=== PATIENT | male | born 1970 | race Caucasian/White ===

== ENCOUNTER → 2019-09-10 07:54 | Outpatient (BNVA) | payer MEDICAID, SELFPAY | PROVIDERS: Family Provider Psychiatry & Neurology Neurology; PCP Family Medicine; Visit Provider Specialist | DX: R56.9 Unspecified convulsions (principal) | CPT/HCPCS: 95816 ==

== ENCOUNTER → 2019-09-12 14:18 | Outpatient (BNVA) | payer MEDICAID, SELFPAY | PROVIDERS: Family Provider Psychiatry & Neurology Neurology; PCP Family Medicine; Visit Provider Nurse Practitioner | DX: F33.1 Major depressive disorder, recurrent, moderate (principal); F15.20 Other stimulant dependence, uncomplicated; F12.20 Cannabis dependence, uncomplicated | CPT/HCPCS: 99213 ==

== ENCOUNTER 2019-09-29 21:21 | Emergency (ER) | payer MEDICAID, SELFPAY | END 2019-09-30 01:12 | disposition left against medical advice (07) | LOC: ER 10-09 14:35 | PROVIDERS: Emergency Provider Emergency Medicine; Family Provider Psychiatry & Neurology Neurology; PCP Family Medicine | DX: R07.9 Chest pain, unspecified (principal); F15.20 Other stimulant dependence, uncomplicated; I45.10 Unspecified right bundle-branch block; F17.210 Nicotine dependence, cigarettes, uncomplicated; Z59.0 Homelessness; B18.2 Chronic viral hepatitis C; Z86.73 Personal history of transient ischemic attack (TIA), and cerebral infarction without residual deficits ==

== ENCOUNTER 2019-09-29 21:21 | Emergency (ER) | payer MEDICAID, SELFPAY ==
[2019-09-29 22:12] VITALS: BP 142/116; PULSE 90; RESP 18; TEMP 36.9; O2SAT 97; BMI 28.9
--- NOTE | 2019-09-29 22:27 | XR_ITS ---
WS: [id number] XR chest 1V portable [id number] REASON FOR EXAM: infection rule out blurred vision. FINDINGS: The cardiac silhouette was unremarkable. The lung schaffer are well aerated. No pulmonary edema, pleural effusion, pneumonia, or mass effect. The hilum and apices are normal. No osseous abnormalities. XR/XR chest 1V portable [id number] IMPRESSION: No active cardiopulmonary changes.
--- NOTE | 2019-09-29 22:27 | ECG_ITS ---
Measurements Intervals [place] Rate: 86 P: 6 MO: 136 QRS: 3 QRSD: 108 T: 10 QT: 349 QTc: 419 SINUS RHYTHM LOW QRS VOLTAGE IN PRECORDIAL LEADS [QRS DEFLECTION < 1.0 mV IN CHEST LEADS] INCOMPLETE RIGHT BUNDLE BRANCH BLOCK [90+ ms QRS DURATION, TERMINAL R IN V1/V2, 40+ ms S IN I/aVL/V4/V5/V6] MINIMAL VOLTAGE CRITERIA FOR LVH, CONSIDER NORMAL VARIANT [MEETS CRITERIA IN ONE OF: R(aVL), S(V1), R(V5), R(V5/V6)+S(V1)] Compared to ECG 07/29/2019 16:26:24 Low QRS voltage now present Myocardial infarct finding no longer present Electronically Signed On 09-30-2019 9:13:32 MID TEACHER by Cj Haider M.D. [id number]
[2019-09-29 22:45] LABS: Basophils # 0.1 10^3/uL (0.0-0.1); Eosinophils # 0.4 10^3/uL (0.0-0.8); Eosinophils % 5.4 %; Hematocrit 41.3 % (42.0-52.0); Hemoglobin 13.6 g/dL (11.7-16.6); Lymphocytes # 3.7 10^3/uL (0.8-4.8); Lymphocytes % 46.9 %; Mean Corpuscular HGB Conc 32.9 g/dL (30.0-36.0); Mean Corpuscular Hemoglobin 30.4 pg (28.0-34.0); Mean Corpuscular Volume 92.2 fL (80-94); Mean Platelet Volume 9.6 fL (7.4-10.4); Monocytes # 0.7 10^3/uL (0.2-0.9); Monocytes % 8.8 %; Neutrophils % 37.8 %; Nucleated Red Blood Cells % 0 %; Platelet Count 230 10^3/cmm (130-400); Red Blood Count 4.48 10^6/uL (4.1-5.3)
[2019-09-29 23:08] LABS: Troponin(5th) Baseline 6 ng/mL (0-15)
[2019-09-29 23:16] LABS: Alanine Aminotransferase 13 U/L (0-41); Albumin Level 4.4 g/dL (3.5-5.2); Alkaline Phosphatase 100 IU/L (40-130); Anion Gap 14.3 (5-19); Aspartate Amino Transferase 20 U/L (0-40); Blood Urea Nitrogen 13 mg/dL (6-20); Calcium 9.3 mg/dL (8.5-10.5); Carbon Dioxide 29 mmol/L (22-29); Chloride 104 mmol/L (98-107); Globulin 2.9 g/dL (1.3-4.6); Glomerular Filtration Rate 89.7 mL/min (90-130); Glucose 100 mg/dL (65-115); NT Pro B Type Natriuretic Pept 6 pg/mL (0-125); Potassium 4.3 mmol/L (3.5-5.1); Sodium 143 mmol/L (136-145); Total Bilirubin 0.2 mg/dL (0.15-1.2); Total Protein 7.3 g/dL (6.6-8.7)
[2019-09-29 23:19] VITALS: BP 130/95; PULSE 80; RESP 18; O2SAT 97
--- NOTE | 2019-09-29 23:29 | ED_ITS ---
Entered by Alyse Calderon, acting as scribe for Ester Tejeda Sep 29, 2019 21:21 HPI - Chest Pain General: Chief Complaint: Chest Pain Stated Complaint: chest pain Time Seen by Provider: 09/29/19 23:21 Source: patient Mode of arrival: ambulatory History of Present Illness: HPI narrative: 49 y/o male presents to the ED with chest pain. Pt states he put his finger in a bag of meth and then proceeded to taste it. He immediately had blurred vision, dizziness and chest pain. Pt has facial twitches and erratic movements consistent with regular stimulant use. MD complaint: chest pain Onset (ago): hour(s) Timing of current episode: other (somewhat improved) Onset: associated with drug use (meth) Pain radiation: none Quality: sharp Relieving factors: nothing Associated symptoms: Deny abdominal pain, diaphoresis, dyspnea, fever(s), nausea or vomiting Treatment prior to arrival: none Review of Systems General: Reports: other (negative unless marked) Const: Denies: fever, chills, body aches, fatigue, malaise or diaphoresis ENMT: Denies: throat pain, painful swallowing, hoarseness, ear pain, ear discharge, Change in hearing or nasal discharge Resp: Denies: shortness of breath, productive cough, non-productive cough, wheezing, coughing up blood or chest congestion GI: Denies: abdominal pain, nausea, vomiting, vomiting blood, coffee grounds in vomit, diarrhea, constipation, cramping, blood in stool or black tarry stool : Denies: flank pain, difficulty urinating, painful urination, urinary frequency, urinary urgency, decreased urine ouput, urinary incontinence or blood in urine Musc: Denies: neck pain, back pain, extremity pain, extremity swelling, joint pain, joint swelling, joint warmth or joint stiffness Skin/Breast: Denies: rash, skin tenderness or yellow skin Endo: Denies: excessive thirst, tired all the time, cold intolerance, excessive sweating, flushing or hot flashes Renard/Lymph: Denies: easy bruising, easy bleeding, petechiae or enlarged lymph nodes [facility] ED PFSH: Medical History Arteriosclerotic cerebrovascular disease Cannabis dependence, uncomplicated Chronic hepatitis C with hepatic coma Chronic low back pain Major depressive disorder, recurrent, moderate MARIA DEL CARMEN (obstructive sleep apnea) Other stimulant dependence, uncomplicated Patent foramen ovale Seizures Surgical History H/O knee surgery History of hip surgery Family History Other Cancer Hypertension Social History Smoking and tobacco status: current every day smoker cigarettes Packs smoked per day: 2.5 Alcohol intake: current Alcohol intake frequency: holidays/special occasions only Housing: Homeless Physical Exam Const: COMMON NORMALS: oriented x3 GENERAL APPEARANCE: cooperative ORIENTATION/CONSCIOUSNESS: Yes awake HENMT: COMMON NORMALS: normocephalic, head/scalp atraumatic, hearing grossly normal bilaterally, external ears normal, EAC's normal, external nose normal and moist oral mucous membranes HEAD & SCALP: normal to inspection, normocephalic and atraumatic FACE & SINUS: normal facial exam and face symmetric NOSE: external nose normal and nares normal EXTERNAL EAR: Yes external ears normal EXTERNAL AUDITORY CANAL: EAC's normal MOUTH: oral and palatal mucosa normal and tongue normal Eye: COMMON NORMALS: PERRL, EOMs intact bilaterally, conjunctivae normal and no scleral icterus GENERAL EYE: normal appearance of both eyes and normal light reflex CONJUNCTIVA: Yes conjunctivae normal SCLERA: sclerae normal CORNEA: Yes corneas normal PUPIL: Yes PERRL DIRECT OPHTHALMOSCOPY: Yes normal light reflex Neck/C-Spine: COMMON NORMALS: full ROM, no lymphadenopathy, supple, no meningeal signs and no JVD GENERAL: Yes normal visual inspection and Yes trachea midline CERVICAL SPINE: Yes cervical ROM normal Chest: COMMONS NORMALS: inspection of chest normal and palpation of chest normal Resp: COMMON NORMALS: normal respiratory effort, no retractions, no use of accessory muscles and clear to auscultation bilaterally EFFORT & INSPECTION: Yes able to speak in complete sentences AUSCULTATION: clear to auscultation bilaterally Cardio: COMMON NORMALS: no JVD, regular rate, regular rhythm, S1 normal heart sound, S2 normal heart sound, no gallops, no clicks, no murmurs and no rub JUGULAR VENOUS DISTENTION: no JVD RATE: regular rate RHYTHM: regular rhythm HEART SOUNDS: S1 normal and S2 normal GI: COMMON NORMALS: soft to palpation, non-tender, no hepatosplenomegaly and no masses INSPECTION: Yes normal to inspection PALPATION: Yes soft and Yes no hepatosplenomegaly : COMMON NORMALS: Yes no CVA tenderness BLADDER/KIDNEY EXAM: Yes no CVA tenderness Back/Pelvis: COMMON NORMALS: no CVA tenderness, thoracic and lumbar spine normal to inspection, no thoracic nor lumbar tenderness and thoraco-lumbar ROM normal Extremity: COMMON NORMALS: normal to inspection, full ROM, normal capillary refill, no joint enlargement, no clubbing, cyanosis or edema and no calf tenderness Neuro: COMMON NORMALS: oriented x3, CN's II-XII intact bilaterally, moves all extremities, no focal motor deficits and no sensory deficits noted MENINGEAL SIGNS: Yes no meningeal signs Skin: COMMON NORMALS: no rashes or lesions noted, skin turgor normal, no jaundice, no petechiae and no mottling GENERAL SKIN EXAM: no rashes or lesions noted and turgor normal Course Vital Signs: Vital signs: Vital Signs Temperature 98.5 F 09/29/19 22:12 Pulse Rate 90 09/30/19 01:11 Respiratory Rate 18 09/30/19 01:11 Blood Pressure 125/84 09/30/19 01:11 Pulse Oximetry 96 09/30/19 01:11 MDM - Chest Pain MDM Narrative: Medical decision making narrative: The patient had apparently got into some methamphetamines and that caused his heart to have sharp pains. Nothing appeared to be like a pulmonary embolism. The patient has 2- troponins here. He refused to stay for discharge instructions and wanted to immediately be discharged. Saw no sign of life or limb threatening illness presently. The patient was offered further care but declined. He refused to stay and was made aware that by leaving he was leaving AGAINST MEDICAL ADVICE and was at risk of or severe permanent disability but despite this he refused and wanted to be discharged. The patient was welcome to return should he change his mind. Lab Data: Attestation: I reviewed the patient's lab results. Labs: Lab Results 09/29/19 09/29/19 09/29/19 Range/Units 22:33 22:33 22:33 WBC 8.0 (4.0-10.0) 10^3/ uL RBC 4.48 (4.1-5.3) 10^6/u L Hgb 13.6 (11.7-16.6) g/dL Hct 41.3 L (42.0-52.0) % MCV 92.2 (80-94) fL MCH 30.4 (28.0-34.0) pg MCHC 32.9 (30.0-36.0) g/dL RDW 13.0 (12.1-15.1) % Plt Count 230 (130-400) 10^3/c mm MPV 9.6 (7.4-10.4) fL Neut % (Auto) 37.8 % Lymph % (Auto) 46.9 % [place] % (Auto) 8.8 % Eos % (Auto) 5.4 % Baso % (Auto) 1.0 % Neut # (Auto) 3.0 (1.8-7.7) 10^3/u L Lymph # (Auto) 3.7 (0.8-4.8) 10^3/u L [place] # (Auto) 0.7 (0.2-0.9) 10^3/u L Eos # (Auto) 0.4 (0.0-0.8) 10^3/u L Baso # (Auto) 0.1 (0.0-0.1) 10^3/u L Nucleated RBC % (a uto) 0 % Nucleated RBCs # 0.0 /100WBC Sodium 143 (136-145) mmol/L Potassium 4.3 (3.5-5.1) mmol/L Chloride 104 (98-107) mmol/L Carbon Dioxide 29 (22-29) mmol/L Anion Gap 14.3 (5-19) BUN 13 (6-20) mg/dL Creatinine 0.9 (0.7-1.2) mg/dL GFR Calculation 89.7 L (90-130) mL/min Glucose 100 (65-115) mg/dL Calcium 9.3 (8.5-10.5) mg/dL Total Bilirubin 0.2 (0.15-1.2) mg/dL AST 20 (0-40) U/L ALT 13 (0-41) U/L Alkaline Phosphata se 100 (40-130) IU/L Troponin T Baselin e 6 (0-15) ng/mL Troponin T 120 Min [place] (0-15) ng/mL Delta Troponin T (0-10) ABS# NT-Pro-B Natriuret Pep 6 (0-125) pg/mL Total Protein 7.3 (6.6-8.7) g/dL Albumin 4.4 (3.5-5.2) g/dL Globulin 2.9 (1.3-4.6) g/dL Urine Color (Yellow) Urine Appearance (CLEAR) Urine pH (5-7) Ur Specific Gravit y (1.005-1.030) Urine Protein (Negative) Urine Glucose (UA) (Normal) Urine Ketones (Negative) Urine Occult Blood (Negative) Urine Nitrate (Negative) Urine Bilirubin (NEGATIVE) Urine Urobilinogen (Negative) mg/dL Ur Leukocyte Birttani ase (Negative) Urine RBC (0-2) /hpf Urine WBC (0-5) /hpf Ur Squamous Epith Cells (0-5) Amorphous Sediment Urine Bacteria (NONE) Urine Opiates Scre en (Negative) ng/mL Ur Barbiturates Sc reen (Negative) ng/mL Ur Phencyclidine S crn (Negative) ng/mL Ur Amphetamines Sc reen (Negative) ng/mL U Benzodiazepines Scrn (Negative) ng/mL Urine Cocaine Scre en (Negative) ng/mL U Marijuana (THC) Screen (Negative) ng/mL 09/29/19 09/29/19 09/30/19 Range/Units 23:37 23:37 00:17 WBC (4.0-10.0) 10^3/ uL RBC (4.1-5.3) 10^6/u L Hgb (11.7-16.6) g/dL Hct (42.0-52.0) % MCV (80-94) fL MCH (28.0-34.0) pg MCHC (30.0-36.0) g/dL RDW (12.1-15.1) % Plt Count (130-400) 10^3/c mm MPV (7.4-10.4) fL Neut % (Auto) % Lymph % (Auto) % [place] % (Auto) % Eos % (Auto) % Baso % (Auto) % Neut # (Auto) (1.8-7.7) 10^3/u L Lymph # (Auto) (0.8-4.8) 10^3/u L [place] # (Auto) (0.2-0.9) 10^3/u L Eos # (Auto) (0.0-0.8) 10^3/u L Baso # (Auto) (0.0-0.1) 10^3/u L Nucleated RBC % (a uto) % Nucleated RBCs # /100WBC Sodium (136-145) mmol/L Potassium (3.5-5.1) mmol/L Chloride (98-107) mmol/L Carbon Dioxide (22-29) mmol/L Anion Gap (5-19) BUN (6-20) mg/dL Creatinine (0.7-1.2) mg/dL GFR Calculation (90-130) mL/min Glucose (65-115) mg/dL Calcium (8.5-10.5) mg/dL Total Bilirubin (0.15-1.2) mg/dL AST (0-40) U/L ALT (0-41) U/L Alkaline Phosphata se (40-130) IU/L Troponin T Baselin e (0-15) ng/mL Troponin T 120 Min [place] 6.00 (0-15) ng/mL Delta Troponin T 0 (0-10) ABS# NT-Pro-B Natriuret Pep (0-125) pg/mL Total Protein (6.6-8.7) g/dL Albumin (3.5-5.2) g/dL Globulin (1.3-4.6) g/dL Urine Color Straw (Yellow) Urine Appearance Cloudy (CLEAR) Urine pH 7 (5-7) Ur Specific Gravit y 1.010 (1.005-1.030) Urine Protein Neg (Negative) Urine Glucose (UA) Norm (Normal) Urine Ketones Negative (Negative) Urine Occult Blood Neg (Negative) Urine Nitrate Negative (Negative) Urine Bilirubin Neg (NEGATIVE) Urine Urobilinogen Norm (Negative) mg/dL Ur Leukocyte Brittani ase Negative (Negative) Urine RBC Rare (0-2) /hpf Urine WBC Rare (0-5) /hpf Ur Squamous Epith Cells Rare (0-5) Amorphous Sediment 2+ Urine Bacteria Trace (NONE) Urine Opiates Scre en Negative (Negative) ng/mL Ur Barbiturates Sc reen Negative (Negative) ng/mL Ur Phencyclidine S crn Negative (Negative) ng/mL Ur Amphetamines Sc reen Positive H (Negative) ng/mL U Benzodiazepines Scrn Negative (Negative) ng/mL Urine Cocaine Scre en Negative (Negative) ng/mL U Marijuana (THC) Screen Negative (Negative) ng/mL EKG Data^: EKG 1: Attestation: I personally reviewed and interpreted this EKG as follows: Interpretation: Normal sinus rhythm at 86 beats a minute, nonspecific ST-T wave changes, LVH, incomplete right bundle branch block. Unchanged from previous. Discharge Plan Discharge Patient Disposition: Left Against Medical Advice Clinical Impression: Chest pain, Other stimulant dependence, uncomplicated Prescriptions: No Action buspirone 10 mg tablet 10 mg PO BID Qty: 60 RF: 1 quetiapine 200 mg tablet 200 mg PO QDAY Qty: 30 RF: 1 sertraline 100 mg tablet 100 mg PO QDAY Qty: 30 RF: 1 trazodone 50 mg tablet 50 mg PO QDAY Qty: 30 RF: 1 Mavyret 100-40 mg tablet 1 tab PO QDAY RF: 0 levetiracetam [Keppra] 750 mg tablet 750 mg PO BID RF: 0 ondansetron HCl [Zofran] 4 mg tablet 4 mg PO Q6H RF: 0 Referrals: Melissa Lowe DO [Primary Care Provider] - Melissa Jones [Family Provider] - Interventions: ED Discharge Assessment Last Done: 09/30/19 01:11 Discharge Date/Time: 09/30/19 01:12 Coding Level of Care Code ED Performance Management Consultant for Chg Fwd Exam Comprehensive The documentation recorded by the Kvng knapp Ashley, accurately reflects the service I personally performed and the decisions made by Ileana lopez Eli N Sep 29, 2019 21:21
[2019-09-29 23:47] LABS: Add Urine Microscopic? YES; Bilirubin Urine Neg (NEGATIVE); Blood Urine Neg (Negative); Glucose Urine UA Norm (Normal); Ketones Urine Negative (Negative); Leukocyte Esterase Urine Negative (Negative); Nitrate Urine Negative (Negative); Protein Urine Neg (Negative); Urine Appearance Cloudy (CLEAR); Urine Color Straw (Yellow); Urobilinogen Urine Norm (Negative); pH Urine 7 (5-7)
[2019-09-30 00:03] LABS: Barbiturates Screen Urine Negative (Negative); Benzodiazepines Screen Urine Negative (Negative); Cocaine Screen Urine Negative (Negative); Opiate Screen Urine Negative (Negative); PCP Screen Urine Negative (Negative); THC Screen Urine Negative (Negative)
[2019-09-30 00:04] LABS: Amphetamines Screen Urine Positive (Negative)
[2019-09-30 00:14] LABS: Bacteria Urine TRACE; RBC Urine RARE /hpf (0-2); Squamous Epithelial Cell Urine RARE (0-5); WBC Urine RARE /hpf (0-5)
[2019-09-30 00:15] LABS: Add Urine Culture? No; Amorphous Sediment Urine 2+
[2019-09-30] MEDS: LORazepam 2 mg/mL INJ 1 mL 1 MG IM (00:28)
[2019-09-30 00:47] LABS: Troponin 5 2HR Delta 0 ABS# (0-10)
[2019-09-30 01:11] VITALS: BP 125/84; PULSE 90; RESP 18; O2SAT 96
== END 2019-09-30 01:12 | disposition left against medical advice (07) ==
PROVIDERS: Emergency Provider Emergency Medicine; Family Provider Psychiatry & Neurology Neurology; PCP Family Medicine
DX: R07.9 Chest pain, unspecified (principal); F15.20 Other stimulant dependence, uncomplicated; Z59.0 Homelessness; Z87.891 Personal history of nicotine dependence; Z53.29 Procedure and treatment not carried out because of patient's decision for other reasons
CPT/HCPCS: 71045; 80053; 80307; 81001; 83880; 84484; 85025; 93005; 96372; 99282; 99284; J2060

== ENCOUNTER → 2019-10-17 08:29 | Outpatient (BNVA) | payer MEDICAID, SELFPAY | PROVIDERS: Family Provider Psychiatry & Neurology Neurology; PCP Family Medicine; Visit Provider Internal Medicine | DX: Z01.89 Encounter for other specified special examinations (principal) | CPT/HCPCS: 87522 ==

== ENCOUNTER → 2019-12-05 07:42 | Outpatient (BNVA) | payer MEDICAID, SELFPAY | PROVIDERS: Family Provider Psychiatry & Neurology Neurology; PCP Family Medicine; Visit Provider Nurse Practitioner | DX: F33.1 Major depressive disorder, recurrent, moderate (principal); F12.20 Cannabis dependence, uncomplicated; F15.20 Other stimulant dependence, uncomplicated; F43.12 Post-traumatic stress disorder, chronic | CPT/HCPCS: 99213 ==

== ENCOUNTER 2021-11-16 01:19 | Emergency (ER) | payer MEDICAID, SELFPAY ==
[2021-11-16 01:28] VITALS: BP 134/95; PULSE 103; RESP 22; TEMP 36.6; O2SAT 98; BMI 30.7
[2021-11-16 01:32] VITALS: BP 108/71; PULSE 87; RESP 21; O2SAT 94
--- NOTE | 2021-11-16 01:34 | CTR_ITS ---
PROCEDURE INFORMATION: Exam: CT Head Without Contrast Exam date and time: 11/16/2021 2:15 AM Age: 51 years old Clinical indication: Other: Seizure; Additional info: Sz TECHNIQUE: Imaging protocol: Computed tomography of the head without contrast. Radiation optimization: All CT scans at this facility use at least one of these dose optimization techniques: automated exposure control; mA and/or kV adjustment per patient size (includes targeted exams where dose is matched to clinical indication); or iterative reconstruction. COMPARISON: CT head wo con* [id number] 07/29/2019 3:55 PM RADIATION DOSE METRICS: Total DLP (mGy-cm): 813.14 FINDINGS: Brain: No acute infarct or hemorrhage. Cerebral ventricles: No ventriculomegaly. Paranasal sinuses: Mucosal thickening in the ethmoid air cells. Mastoid air cells: Visualized mastoid air cells are clear. Bones/joints: No calvarial or skull base fracture. Soft tissues: Unremarkable. CT/CT head wo con* [id number] IMPRESSION: 1. No acute infarct or hemorrhage. 2. No calvarial or skull base fracture. 3. Mucosal thickening in the ethmoid air cells.
--- NOTE | 2021-11-16 01:34 | XRR_ITS ---
PROCEDURE INFORMATION: Exam: XR Chest Exam date and time: 11/16/2021 2:02 AM Age: 51 years old Clinical indication: Other: Seizure; Additional info: Twila TECHNIQUE: Imaging protocol: XR of the chest. Views: 1 view. COMPARISON: CR XR chest 1V portable [id number] 09/29/2019 11:32 PM FINDINGS: Lungs: Unremarkable. No consolidation. Pleural spaces: Unremarkable. No pleural effusion. No pneumothorax. Heart/Mediastinum: Unremarkable. No cardiomegaly. Bones/joints: Unremarkable. XR/XR chest 1V portable [id number] IMPRESSION: No acute findings.
--- NOTE | 2021-11-16 01:34 | ECG_ITS ---
[facility] Test Date: 2021-11-16 Pat Name: Mal Jack Department: Room: Gender: Male Bank Officer: : 1970 Requested By: Eugenio Schmitt Order Number: [id number] Iwona MD: Cj Haider M.D. Measurements Intervals [place] Rate: 82 P: 5 HI: 126 QRS: 30 QRSD: 114 T: 58 QT: 356 QTc: 416 Interpretive Statements SINUS RHYTHM MODERATE INTRAVENTRICULAR CONDUCTION DELAY [110+ ms QRS DURATION] MODERATE ST DEPRESSION [0.05+ mV ST DEPRESSION] Compared to ECG 09/29/2019 22:14:36 Intraventricular conduction delay now present ST (T wave) deviation now present Incomplete right bundle-branch block no longer present Electronically Signed On 11-17-2021 9:16:02 CDT by Cj Haider M.D. [id number]
[2021-11-16 02:02] LABS: Basophils # 0.1 10^3/uL (0.0-0.1); Basophils % 1.2 %; Eosinophils # 0.3 10^3/uL (0.0-0.8); Eosinophils % 3.5 %; Hematocrit 43.4 % (42.0-52.0); Hemoglobin 14.8 g/dL (11.7-16.6); Lymphocytes # 4.9 10^3/uL (0.8-4.8); Lymphocytes % 52.4 %; Mean Corpuscular HGB Conc 34.1 g/dL (30.0-36.0); Mean Corpuscular Hemoglobin 32.7 pg (28.0-34.0); Mean Platelet Volume 9.9 fL (7.4-10.4); Monocytes % 10.8 %; Neutrophils # 2.99 10^3/uL (1.8-7.7); Neutrophils % 31.9 %; Nucleated Red Blood Cells % 0 %; Platelet Count 261 10^3/cmm (130-400); Red Blood Count 4.52 10^6/uL (4.1-5.3); Red Cell Distribution Width 11.9 % (12.1-15.1); White Blood Count 9.4 10^3/uL (4.0-10.0)
--- NOTE | 2021-11-16 02:08 | W.ED.SEIZURE ---
HPI - Seizure General: Chief Complaint: Seizure Stated Complaint: Seizures Time Seen by Provider: 11/16/21 01:22 Source: patient History of Present Illness: HPI Narrative: 51-year-old male, evidently with a history of seizure disorder, he tells me he is on valproic acid now daily. He was staying at his ex-'s house for spring, and ran out of medication. He has not had his valproic acid in 2 days. He had a couple of seizures tonight. He states that he lived in [facility] for a couple of years, and just moved back, and does not have a local neurologist. He denies any other recent illness. Denies fever, cough, vomiting or diarrhea. Onset (ago): hour(s) Description of Episode: tonic-clonic movement Witnessed: Yes - by Bystander Trauma: No Seizure History: Yes Possible Precipitating Event: head injury (He states he bumped his head yesterday.) Associated symptoms: Reports confusion; Deny chest pain, cough, diaphoresis, fever(s), short of breath or weakness Treatments prior to arrival: none Review of Systems Const: Denies: fever(s) or diaphoresis Eyes: Denies: change in vision ENMT: Denies: throat pain Card: Denies: chest pain Resp: Denies: dyspnea, productive cough or non-productive cough GI: Denies: abdominal pain or vomiting Musc: Reports: neck pain Neuro: Reports: headache(s), dizziness and confusion [facility] ED PFSH: Medical History (Updated 11/16/21 @ 04:11 by Eugenio Foster DO) Arteriosclerotic cerebrovascular disease Cannabis dependence, uncomplicated Chronic hepatitis C with hepatic coma He completed Mavyret in 09/03. Chronic low back pain Major depressive disorder, recurrent, moderate MARIA DEL CARMEN (obstructive sleep apnea) Other stimulant dependence, uncomplicated Patent foramen ovale Seizures Surgical History H/O knee surgery History of hip surgery Family History Other Cancer Hypertension Social History Smoking and tobacco status: current every day smoker cigarettes Packs smoked per day: 2.5 Alcohol intake: current Alcohol intake frequency: holidays/special occasions only Housing: Homeless History of recent travel: No Physical Exam Const: GENERAL APPEARANCE: cooperative HENMT: COMMON NORMALS: normocephalic, atraumatic and Normal external nose present HEAD & SCALP: normocephalic and atraumatic FACE & SINUS: normal facial exam and face symmetric NOSE: Normal external nose present and Normal nares present MOUTH: tongue normal Eye: COMMON NORMALS: Equal, round and reactive pupils present and EOMs intact bilaterally PUPIL: Yes Equal, round and reactive pupils present Neck/C-Spine: COMMON NORMALS: full ROM Chest: COMMONS NORMALS: normal inspection of the chest Resp: COMMON NORMALS: normal respiratory effort, No use of accessory muscles and clear to auscultation bilaterally AUSCULTATION: clear to auscultation bilaterally Cardio: COMMON NORMALS: regular rate and regular rhythm RATE: regular rate RHYTHM: regular rhythm GI: COMMON NORMALS: Normal to inspection, nondistended, normoactive bowel sounds present, Soft to palpation and non-tender PALPATION: Yes Soft to palpation Extremity: COMMON NORMALS: normal to inspection Neuro: CRANIAL NERVES: Yes CN normal except as noted Psych: COMMON NORMALS: cooperative ATTITUDE: Yes calm Course Vital Signs: Vital signs: Vital Signs Temperature 97.9 F 11/16/21 01:28 Pulse Rate 87 11/16/21 01:32 Respiratory Rate 21 H 11/16/21 01:32 Blood Pressure 108/71 11/16/21 01:32 Pulse Oximetry 94 11/16/21 01:32 MDM - Seizure MDM Narrative Medical decision making narrative: Patient was loaded with valproic acid, and given Ativan here. He is resting comfortably. He is essentially back at baseline. His laboratory is benign. Head CT is negative. Chest x-ray is negative. He will be allowed home. He goes back home today and his valproic acid will be accessible Lab Data Result diagrams: 11/16/21 01:40 11/16/21 01:40 Labs: Radiology Impressions Chest X-Ray 11/16/21 01:34 IMPRESSION: No acute findings. Head CT 11/16/21 01:34 IMPRESSION: 1. No acute infarct or hemorrhage. 2. No calvarial or skull base fracture. 3. Mucosal thickening in the ethmoid air cells. Laboratory Results WBC 9.4 10^3/uL (4.0-10.0) 11/16/21 01:40 RBC 4.52 10^6/uL (4.1-5.3) 11/16/21 01:40 Hgb 14.8 g/dL (11.7-16.6) 11/16/21 01:40 Hct 43.4 % (42.0-52.0) 11/16/21 01:40 MCV 96.0 fl (80-94) H 11/16/21 01:40 MCH 32.7 pg (28.0-34.0) 11/16/21 01:40 MCHC 34.1 g/dL (30.0-36.0) 11/16/21 01:40 RDW 11.9 % (12.1-15.1) L 11/16/21 01:40 Plt Count 261 10^3/cmm (130-400) 11/16/21 01:40 MPV 9.9 fL (7.4-10.4) 11/16/21 01:40 Neut % (Auto) 31.9 % 11/16/21 01:40 Lymph % (Auto) 52.4 % 11/16/21 01:40 [place] % (Auto) 10.8 % 11/16/21 01:40 Eos % (Auto) 3.5 % 11/16/21 01:40 Baso % (Auto) 1.2 % 11/16/21 01:40 Neut # (Auto) 2.99 10^3/uL (1.8-7.7) 11/16/21 01:40 Lymph # (Auto) 4.9 10^3/uL (0.8-4.8) H 11/16/21 01:40 [place] # (Auto) 1.0 10^3/uL (0.2-0.9) H 11/16/21 01:40 Eos # (Auto) 0.3 10^3/uL (0.0-0.8) 11/16/21 01:40 Baso # (Auto) 0.1 10^3/uL (0.0-0.1) 11/16/21 01:40 Nucleated RBC % (auto) 0 % 11/16/21 01:40 Nucleated RBCs # 0.0 /100WBC 11/16/21 01:40 Sodium 139 mmol/L (136-145) 11/16/21 01:40 Potassium 4.7 mmol/L (3.5-5.1) 11/16/21 01:40 Chloride 99 mmol/L (98-107) 11/16/21 01:40 Carbon Dioxide 29 mmol/L (22-29) 11/16/21 01:40 Anion Gap 15.7 (5-19) 11/16/21 01:40 BUN 18 mg/dL (6-20) 11/16/21 01:40 Creatinine 1.1 mg/dL (0.7-1.2) 11/16/21 01:40 GFR Calculation 70.6 mL/min (90-130) L 11/16/21 01:40 Glucose 83 mg/dL (65-115) 11/16/21 01:40 Calculated Osmolality 289 mOsm/kg (285-295) 11/16/21 01:40 Calcium 9.9 mg/dL (8.5-10.5) 11/16/21 01:40 Phosphorus 4.3 mg/dL (2.5-4.5) 11/16/21 01:40 Magnesium 2.3 mg/dL (1.7-2.3) 11/16/21 01:40 Total Bilirubin 0.2 mg/dL (0.15-1.2) 11/16/21 01:40 AST 21 U/L (0-40) 11/16/21 01:40 ALT 13 U/L (0-41) 11/16/21 01:40 Alkaline Phosphatase 81 IU/L (40-130) 11/16/21 01:40 Creatine Kinase 193 U/L (39-308) 11/16/21 01:40 Total Protein 7.7 g/dL (6.6-8.7) 11/16/21 01:40 Albumin 4.5 g/dL (3.5-5.2) 11/16/21 01:40 Globulin 3.2 g/dL (1.3-4.6) 11/16/21 01:40 Urine Color Yellow (Yellow) 11/16/21 02:53 Urine Appearance Clear (CLEAR) 11/16/21 02:53 Urine pH 6 (5-7) 11/16/21 02:53 Ur Specific [place] 1.020 (1.005-1.030) 11/16/21 02:53 Urine Protein Neg (Negative) 11/16/21 02:53 Urine Glucose (UA) Norm (Normal) 11/16/21 02:53 Urine Ketones Negative (Negative) 11/16/21 02:53 Urine Blood Neg (Negative) 11/16/21 02:53 Urine Nitrate Negative (Negative) 11/16/21 02:53 Urine Bilirubin Neg (Negative) 11/16/21 02:53 Urine Urobilinogen Norm mg/dL (Negative) 11/16/21 02:53 Ur Leukocyte Esterase Negative (Negative) 11/16/21 02:53 Urine Opiates Screen Negative ng/mL (Negative) 11/16/21 02:53 Ur Barbiturates Screen Positive ng/mL (Negative) H 11/16/21 02:53 Valproic Acid 2.8 ug/mL (50-100) L 11/16/21 01:40 Ur Phencyclidine Scrn Negative ng/mL (Negative) 11/16/21 02:53 Ur Amphetamines Screen Negative ng/mL (Negative) 11/16/21 02:53 U Benzodiazepines Scrn Negative ng/mL (Negative) 11/16/21 02:53 Urine Cocaine Screen Negative ng/mL (Negative) 11/16/21 02:53 U Marijuana (THC) Screen Positive ng/mL (Negative) H 11/16/21 02:53 Ethyl Alcohol < 10 mg/dL (0-10) 11/16/21 01:40 Discharge Plan Discharge Patient Disposition: Home Clinical Impression: Generalized seizure Condition: Stable Prescriptions: Discontinued levetiracetam [Keppra] 750 mg tablet 750 mg PO BID 0RF No Action sertraline 100 mg tablet 100 mg PO QDAY Qty: 30 1RF quetiapine 200 mg tablet 200 mg PO QDAY Qty: 30 1RF trazodone 50 mg tablet 50 mg PO QDAY Qty: 30 1RF buspirone 10 mg tablet 10 mg PO TID Qty: 90 1RF ondansetron HCl [Zofran] 4 mg tablet 4 mg PO Q6H 0RF Discharge Orders: Discharge ED (Routine); Ordered 11/16/21 Ordered By: Eugenio Foster Referrals: Melissa Lowe DO [Primary Care Provider] - 4-7 days Activity Restrictions/Additional Instructions: Return for repeated episodes of seizure, syncope or passing out, worsening mental status, weakness, language problems, vision problems, any other concerning symptoms. Take your divalproate as scheduled today. Coding Level of Care Code ED School Aide for Serena Fwd Exam Comprehensive
[2021-11-16] MEDS: sodium chloride 0.9% 1,000 ML 999 ML IV (02:10)
[2021-11-16] MEDS: LORazepam 2 mg/mL INJ 1 mL IVP (02:10)
[2021-11-16] MEDS: valproic acid inj 500 MG in sodium chloride 0.9% 50 ML 55 MG IV (02:10)
[2021-11-16 02:31] LABS: Alanine Aminotransferase 13 U/L (0-41); Albumin Level 4.5 g/dL (3.5-5.2); Alkaline Phosphatase 81 IU/L (40-130); Anion Gap 15.7 (5-19); Aspartate Amino Transferase 21 U/L (0-40); Blood Urea Nitrogen 18 mg/dL (6-20); Calcium 9.9 mg/dL (8.5-10.5); Carbon Dioxide 29 mmol/L (22-29); Chloride 99 mmol/L (98-107); Creatine Phosphokinase 193 U/L (39-308); Globulin 3.2 g/dL (1.3-4.6); Glomerular Filtration Rate 70.6 mL/min (90-130); Glucose 83 mg/dL (65-115); Magnesium 2.3 mg/dL (1.7-2.3); Osmolality Calculated 289 mOsm/kg (285-295); Phosphorus 4.3 mg/dL (2.5-4.5); Potassium 4.7 mmol/L (3.5-5.1); Sodium 139 mmol/L (136-145); Total Bilirubin 0.2 mg/dL (0.15-1.2); Total Protein 7.7 g/dL (6.6-8.7)
[2021-11-16 02:37] LABS: Alcohol Level < 10 mg/dL (0-10)
[2021-11-16 03:09] LABS: Add Urine Microscopic? NO; Charge for UA Resulting for Rev
[2021-11-16 03:11] LABS: Bilirubin Urine Neg (Negative); Blood Urine Neg (Negative); Glucose Urine UA Norm (Normal); Ketones Urine Negative (Negative); Leukocyte Esterase Urine Negative (Negative); Nitrate Urine Negative (Negative); Protein Urine Neg (Negative); Urine Appearance Clear (CLEAR); Urine Color Yellow (Yellow); Urobilinogen Urine Norm (Negative); pH Urine 6 (5-7)
[2021-11-16 03:12] LABS: Valproic Acid Level 2.8 ug/mL (50-100)
[2021-11-16 03:20] LABS: Amphetamines Screen Urine Negative (Negative); Barbiturates Screen Urine Positive (Negative); Benzodiazepines Screen Urine Negative (Negative); Cocaine Screen Urine Negative (Negative); Opiate Screen Urine Negative (Negative); PCP Screen Urine Negative (Negative); THC Screen Urine Positive (Negative)
== END 2021-11-16 04:27 | disposition home or self-care (01) ==
PROVIDERS: Emergency Provider Emergency Medicine; PCP Family Medicine
DX: G40.409 Other generalized epilepsy and epileptic syndromes, not intractable, without status epilepticus (principal); T42.6X6A Underdosing of other antiepileptic and sedative-hypnotic drugs, initial encounter; Z91.128 Patient's intentional underdosing of medication regimen for other reason; F17.210 Nicotine dependence, cigarettes, uncomplicated; Z59.01 Sheltered homelessness
CPT/HCPCS: 70450; 71045; 80053; 80164; 80306; 80307; 81003; 82550; 83735; 84100; 85025; 93005; 96361; 96374; 99283; J2060; J7030

== ENCOUNTER 2022-01-09 14:01 | Emergency (ER) | payer MEDICAID, SELFPAY ==
[2022-01-09 14:15] VITALS: BP 105/68; PULSE 66; RESP 18; TEMP 37.1; O2SAT 96; BMI 27.6
[2022-01-09 14:16] VITALS: BP 86/70; PULSE 62; RESP 15; TEMP 36.2; O2SAT 93; BMI 34.2
--- NOTE | 2022-01-09 14:21 | ED_ITS ---
HPI - Seizure General: Chief Complaint: Seizure Stated Complaint: SEIZURE Time Seen by Provider: 01/09/22 14:02 History of Present Illness: HPI Narrative: 51-year-old male presents following seizure patient has a known seizure history and is on Dilantin. Patient reports that he had 3 episodes of seizures today. Does not state long each episode lasted. No complaint of tongue biting or loss of bowel or bladder. He reports he was shaking patient does report that he felt like he got a little feverish earlier today, sweating and hot. Patient reports that he received a call from his physician yesterday and was told to lower his Dilantin level because it was high. Seizure History: Yes Associated symptoms: Reports chills and diaphoresis; Deny chest pain Review of Systems Const: Reports: chills and diaphoresis Eyes: Denies: change in vision or blurry vision ENMT: Denies: throat pain or oral sores Card: Denies: chest pain or palpitations Resp: Denies: dyspnea or wheezing GI: Denies: abdominal pain, nausea or vomiting : Denies: flank pain, difficulty urinating or dysuria Musc: Denies: neck pain or back pain Skin/Breast: Denies: rash or pruritus Neuro: Reports: seizure-like activity; Denies: headache(s) or numbness in extremities PFSH ED PFSH: Medical History (Updated 01/09/22 @ 15:54 by Lb Jenkins DO) Arteriosclerotic cerebrovascular disease Cannabis dependence, uncomplicated Chronic hepatitis C with hepatic coma He completed Mavyret in 09/03. Chronic low back pain Major depressive disorder, recurrent, moderate MARIA DEL CARMEN (obstructive sleep apnea) Other stimulant dependence, uncomplicated Patent foramen ovale Seizures Surgical History H/O knee surgery History of hip surgery Family History Other Cancer Hypertension Social History Smoking and tobacco status: current every day smoker cigarettes Packs smoked per day: 2.5 Alcohol intake: current Alcohol intake frequency: holidays/special occasions only Housing: Homeless History of recent travel: No Physical Exam Const: COMMON NORMALS: no acute distress and patient oriented x3 EXAM LIMITATIONS: no altered mental status Eye: COMMON NORMALS: Equal, round and reactive pupils present and EOMs intact bilaterally PUPIL: Yes Equal, round and reactive pupils present Resp: COMMON NORMALS: normal respiratory effort, No retractions and No use of accessory muscles Cardio: COMMON NORMALS: regular rate and regular rhythm RATE: regular rate RHYTHM: regular rhythm GI: COMMON NORMALS: Normal to inspection, nondistended, normoactive bowel sounds present, Soft to palpation and non-tender PALPATION: Yes Soft to palpation Extremity: COMMON NORMALS: normal to inspection and full ROM Neuro: COMMON NORMALS: patient oriented x3, CN's II-XII intact bilaterally and moves all extremities Psych: APPEARANCE: Yes unkempt and Yes disheveled ATTITUDE: Yes calm ACTIVITY/MOTOR BEHAVIOR: Yes fidgeting and Yes restless ATTENTION/CONCENTRATION: Yes attention grossly intact Skin: COMMON NORMALS: no rashes or lesions noted GENERAL SKIN EXAM: no rashes or lesions noted Course Vital Signs: Vital signs: Vital Signs Temperature 97.1 F L 01/09/22 14:16 Pulse Rate 62 01/09/22 14:16 Respiratory Rate 15 01/09/22 14:16 Blood Pressure 86/70 01/09/22 14:16 Pulse Oximetry 93 01/09/22 14:16 MDM - Seizure MDM Narrative Medical decision making narrative: Patient feeling much better. Patient with a history of seizures. Patient's Dilantin level is appropriate so at this time I will not give him any further antiseizure medication. Patient should call his neurologist next week if he continues to have any seizures throughout the weekend. Patient stable and discharged home. Lab Data Result diagrams: 01/09/22 14:50 01/09/22 14:50 Labs: Laboratory Results WBC 9.7 10^3/uL (4.0-10.0) 01/09/22 14:50 RBC 4.78 10^6/uL (4.1-5.3) 01/09/22 14:50 Hgb 15.7 g/dL (11.7-16.6) 01/09/22 14:50 Hct 45.2 % (42.0-52.0) 01/09/22 14:50 MCV 94.6 fl (80-94) H 01/09/22 14:50 MCH 32.8 pg (28.0-34.0) 01/09/22 14:50 MCHC 34.7 g/dL (30.0-36.0) 01/09/22 14:50 RDW 11.9 % (12.1-15.1) L 01/09/22 14:50 Plt Count 204 10^3/cmm (130-400) 01/09/22 14:50 MPV 9.8 fL (7.4-10.4) 01/09/22 14:50 Neut % (Auto) 53.3 % 01/09/22 14:50 Lymph % (Auto) 33.3 % 01/09/22 14:50 [place] % (Auto) 8.8 % 01/09/22 14:50 Eos % (Auto) 3.5 % 01/09/22 14:50 Baso % (Auto) 0.8 % 01/09/22 14:50 Neut # (Auto) 5.16 10^3/uL (1.8-7.7) 01/09/22 14:50 Lymph # (Auto) 3.2 10^3/uL (0.8-4.8) 01/09/22 14:50 [place] # (Auto) 0.9 10^3/uL (0.2-0.9) 01/09/22 14:50 Eos # (Auto) 0.3 10^3/uL (0.0-0.8) 01/09/22 14:50 Baso # (Auto) 0.1 10^3/uL (0.0-0.1) 01/09/22 14:50 Nucleated RBC % (auto) 0 % 01/09/22 14:50 Nucleated RBCs # 0.0 /100WBC 01/09/22 14:50 Sodium 138 mmol/L (136-145) 01/09/22 14:50 Potassium 3.9 mmol/L (3.5-5.1) 01/09/22 14:50 Chloride 102 mmol/L (98-107) 01/09/22 14:50 Carbon Dioxide 26 mmol/L (22-29) 01/09/22 14:50 Anion Gap 13.9 (5-19) 01/09/22 14:50 BUN 8 mg/dL (6-20) 01/09/22 14:50 Creatinine 0.6 mg/dL (0.7-1.2) L 01/09/22 14:50 GFR Calculation 142.0 mL/min (90-130) H 01/09/22 14:50 Glucose 104 mg/dL (65-115) 01/09/22 14:50 Calculated Osmolality 285 mOsm/kg (285-295) 01/09/22 14:50 Calcium 8.4 mg/dL (8.5-10.5) L 01/09/22 14:50 Total Bilirubin 0.2 mg/dL (0.15-1.2) 01/09/22 14:50 AST 25 U/L (0-40) 01/09/22 14:50 ALT 23 U/L (0-41) 01/09/22 14:50 Alkaline Phosphatase 104 IU/L (40-130) 01/09/22 14:50 C-Reactive Protein 3.0 mg/L (0.0-4.9) 01/09/22 14:50 Total Protein 6.8 g/dL (6.6-8.7) 01/09/22 14:50 Albumin 4.2 g/dL (3.5-5.2) 01/09/22 14:50 Globulin 2.6 g/dL (1.3-4.6) 01/09/22 14:50 Urine Color Yellow (Yellow) 01/09/22 14:50 Urine Appearance Clear (CLEAR) 01/09/22 14:50 Urine pH 6 (5-7) 01/09/22 14:50 Ur Specific [place] 1.020 (1.005-1.030) 01/09/22 14:50 Urine Protein Neg (Negative) 01/09/22 14:50 Urine Glucose (UA) Norm (Normal) 01/09/22 14:50 Urine Ketones Negative (Negative) 01/09/22 14:50 Urine Blood Neg (Negative) 01/09/22 14:50 Urine Nitrate Negative (Negative) 01/09/22 14:50 Urine Bilirubin Neg (Negative) 01/09/22 14:50 Urine Urobilinogen Norm mg/dL (Negative) 01/09/22 14:50 Ur Leukocyte Esterase Negative (Negative) 01/09/22 14:50 Urine Opiates Screen Negative ng/mL (Negative) 01/09/22 14:50 Ur Barbiturates Screen Positive ng/mL (Negative) H 01/09/22 14:50 Phenytoin 23.7 ug/mL (10-20) H 01/09/22 14:50 Ur Phencyclidine Scrn Negative ng/mL (Negative) 01/09/22 14:50 Ur Amphetamines Screen Negative ng/mL (Negative) 01/09/22 14:50 U Benzodiazepines Scrn Negative ng/mL (Negative) 01/09/22 14:50 Urine Cocaine Screen Negative ng/mL (Negative) 01/09/22 14:50 U Marijuana (THC) Screen Positive ng/mL (Negative) H 01/09/22 14:50 Discharge Plan Discharge Patient Disposition: Home Clinical Impression: Epileptic seizure Condition: Stable Prescriptions: No Action sertraline 100 mg tablet 100 mg PO QDAY Qty: 30 1RF quetiapine 200 mg tablet 200 mg PO QDAY Qty: 30 1RF trazodone 50 mg tablet 50 mg PO QDAY Qty: 30 1RF buspirone 10 mg tablet 10 mg PO TID Qty: 90 1RF ondansetron HCl [Zofran] 4 mg tablet 4 mg PO Q6H 0RF Discharge Orders: Discharge ED (Routine); Ordered 01/09/22 Ordered By: Lb Jenkins Referrals: Denise Bhandari FNP [Primary Care Provider] - Discharge Diet: Usual diet Discharge Activity: Resume usual activity and Increase activity as tolerated Patient Instructions: Epilepsy (DC), Generalized Tonic Clonic Seizures (ED), Opioid Safety Activity Restrictions/Additional Instructions: Please call your primary care provider and neurologist next week for recheck of your seizures and increase in seizure activity Coding Level of Care Code ED Urban Design Consultant for Serena Fwd Exam Comprehensive
[2022-01-09] MEDS: sodium chloride 0.9% 1,000 ML 999 ML IV (14:51)
[2022-01-09 15:06] LABS: Basophils # 0.1 10^3/uL (0.0-0.1); Basophils % 0.8 %; Eosinophils # 0.3 10^3/uL (0.0-0.8); Eosinophils % 3.5 %; Hematocrit 45.2 % (42.0-52.0); Hemoglobin 15.7 g/dL (11.7-16.6); Lymphocytes # 3.2 10^3/uL (0.8-4.8); Lymphocytes % 33.3 %; Mean Corpuscular HGB Conc 34.7 g/dL (30.0-36.0); Mean Corpuscular Hemoglobin 32.8 pg (28.0-34.0); Mean Corpuscular Volume 94.6 fl (80-94); Mean Platelet Volume 9.8 fL (7.4-10.4); Monocytes # 0.9 10^3/uL (0.2-0.9); Monocytes % 8.8 %; Neutrophils # 5.16 10^3/uL (1.8-7.7); Neutrophils % 53.3 %; Nucleated Red Blood Cells % 0 %; Platelet Count 204 10^3/cmm (130-400); Red Blood Count 4.78 10^6/uL (4.1-5.3); Red Cell Distribution Width 11.9 % (12.1-15.1); White Blood Count 9.7 10^3/uL (4.0-10.0)
[2022-01-09 15:21] LABS: Add Urine Microscopic? NO; Charge for UA Resulting for Rev
[2022-01-09 15:30] LABS: Bilirubin Urine Neg (Negative); Blood Urine Neg (Negative); Glucose Urine UA Norm (Normal); Ketones Urine Negative (Negative); Leukocyte Esterase Urine Negative (Negative); Nitrate Urine Negative (Negative); Protein Urine Neg (Negative); Urine Appearance Clear (CLEAR); Urine Color Yellow (Yellow); Urobilinogen Urine Norm (Negative); pH Urine 6 (5-7)
[2022-01-09 15:32] LABS: Alanine Aminotransferase 23 U/L (0-41); Albumin Level 4.2 g/dL (3.5-5.2); Alkaline Phosphatase 104 IU/L (40-130); Anion Gap 13.9 (5-19); Aspartate Amino Transferase 25 U/L (0-40); Blood Urea Nitrogen 8 mg/dL (6-20); Calcium 8.4 mg/dL (8.5-10.5); Carbon Dioxide 26 mmol/L (22-29); Chloride 102 mmol/L (98-107); Globulin 2.6 g/dL (1.3-4.6); Glucose 104 mg/dL (65-115); Osmolality Calculated 285 mOsm/kg (285-295); Potassium 3.9 mmol/L (3.5-5.1); Sodium 138 mmol/L (136-145); Total Bilirubin 0.2 mg/dL (0.15-1.2); Total Protein 6.8 g/dL (6.6-8.7)
[2022-01-09 15:33] LABS: Phenytoin Dilantin 23.7 ug/mL (10-20)
[2022-01-09 15:39] LABS: Amphetamines Screen Urine Negative (Negative); Barbiturates Screen Urine Positive (Negative); Benzodiazepines Screen Urine Negative (Negative); Cocaine Screen Urine Negative (Negative); Opiate Screen Urine Negative (Negative); PCP Screen Urine Negative (Negative); THC Screen Urine Positive (Negative)
== END 2022-01-09 16:25 | disposition home or self-care (01) ==
PROVIDERS: Emergency Provider Student in an Organized Health Care Education/Training Program; PCP Nurse Practitioner Family
DX: G40.909 Epilepsy, unspecified, not intractable, without status epilepticus (principal); Z79.899 Other long term (current) drug therapy
CPT/HCPCS: 80053; 80185; 80306; 81003; 85025; 86140; 96360; 99283; J7030

== ENCOUNTER 2022-03-15 20:00 | Outpatient (CLI) | payer MEDICAID, SELFPAY | END 2022-03-15 20:01 | disposition home or self-care (01) | LOC: SLEEP 03-16 07:41 | PROVIDERS: PCP Nurse Practitioner Family; Visit Provider Nurse Practitioner Family | DX: G47.33 Obstructive sleep apnea (adult) (pediatric) (principal) | CPT/HCPCS: 95810 ==

== ENCOUNTER 2022-05-09 04:05 | Emergency (ER) | payer MEDICAID, SELFPAY ==
[2022-05-09 04:06] VITALS: BP 128/75; PULSE 83; RESP 18; TEMP 36.6; O2SAT 92
[2022-05-09 04:07] VITALS: BP 128/75; O2SAT 98
--- NOTE | 2022-05-09 04:07 | CTR_ITS ---
PROCEDURE INFORMATION: Exam: CT Abdomen And Pelvis Without Contrast Exam date and time: 05/09/2022 4:36 AM Age: 52 years old Clinical indication: Abdominal pain; Generalized; Additional info: Abd pain TECHNIQUE: Imaging protocol: Computed tomography of the abdomen and pelvis without contrast. Radiation optimization: All CT scans at this facility use at least one of these dose optimization techniques: automated exposure control; mA and/or kV adjustment per patient size (includes targeted exams where dose is matched to clinical indication); or iterative reconstruction. COMPARISON: CT abdomen pelvis w con* [id number] 11/10/2017 2:45 PM RADIATION DOSE METRICS: Total DLP (mGy-cm): 469.31 FINDINGS: Lungs: The lung bases are clear. No effusion Liver: Normal. No mass. Gallbladder and bile ducts: No wall thickening, pericholecystic fluid or stones. Pancreas: Normal. No ductal dilation. Spleen: Normal. No splenomegaly. Adrenal glands: Normal. No mass. Kidneys and ureters: Normal. No hydronephrosis. Stomach and bowel: Diverticulosis without diverticulitis. Appendix: No evidence of appendicitis. Intraperitoneal space: Unremarkable. No free air. No significant fluid collection. Vasculature: Unremarkable. No abdominal aortic aneurysm. Lymph nodes: Unremarkable. No enlarged lymph nodes. Urinary bladder: Unremarkable as visualized. Reproductive: Unremarkable as visualized. Bones/joints: Unremarkable. No acute fracture. Soft tissues: Unremarkable. CT/CT abdomen pelvis wo con [id number] IMPRESSION: 1. Diverticulosis without diverticulitis. 2. No cause for acute pain is identified.
--- NOTE | 2022-05-09 04:07 | ECG_ITS ---
[facility] Test Date: 2022-05-09 Pat Name: Mal Jack Department: Room: Gender: Male Tile Mason: : 1970 Requested By: Fermin Yeung Order Number: [id number] Reading MD: Measurements Intervals [place] Rate: 107 P: -10 [place]: 86 QRS: 0 QRSD: 149 T: 0 QT: 138 QTc: 184 Interpretive Statements SINUS TACHYCARDIA WITH SHORT [place] INTERVAL WITH OCCASIONAL VENTRICULAR PREMATURE COMPLEXES LEFT ATRIAL ENLARGEMENT [-0.15mV P-WAVE IN V1/V2] RIGHT BUNDLE BRANCH BLOCK [120+ ms QRS DURATION, UPRIGHT V1, 40+ ms S IN I/aVL/V4/V5/V6] POSSIBLE LEFT VENTRICULAR HYPERTROPHY [VOLTAGE CRITERIA PLUS LAE OR QRS WIDENING] PROBABLE ANTERIOR MYOCARDIAL INFARCTION , PROBABLY OLD [35 ms Q WAVE IN V3/V4] MARKED ST ELEVATION, CONSIDER INFERIOR INJURY [MARKED ST ELEVATION W/O NORMALLY INFLECTED T-WAVE IN II/aVF] ACUTE [place] Compared to ECG 11/16/2021 01:57:19 Ventricular premature complex(es) now present Short [place] interval now present Atrial abnormality now present Right bundle-branch block now present Myocardial infarct finding now present Sinus rhythm no longer present Intraventricular conduction delay no longer present ST (T wave) deviation still present [email or web address]
--- NOTE | 2022-05-09 04:07 | CTR_ITS ---
PROCEDURE INFORMATION: Exam: CT Head Without Contrast Exam date and time: 05/09/2022 4:33 AM Age: 52 years old Clinical indication: Other: Seizure TECHNIQUE: Imaging protocol: Computed tomography of the head without contrast. Radiation optimization: All CT scans at this facility use at least one of these dose optimization techniques: automated exposure control; mA and/or kV adjustment per patient size (includes targeted exams where dose is matched to clinical indication); or iterative reconstruction. COMPARISON: CT head wo con* [id number] 11/16/2021 2:15 AM RADIATION DOSE METRICS: Total DLP (mGy-cm): 1078.37 FINDINGS: Brain: The brain parenchyma is normal with normal wolfe and white interfaces, sulci and gyri. There are no intracranial masses, mass effect or midline shift. There is no cerebral edema. There is no subarachnoid hemorrhage. There are no intra-or extra-axial fluid collections, intraventricular or intraparenchymal hemorrhage. There are no definite low attenuation demarcating areas on the non-contrast CT to suggest subacute stroke. Cerebral ventricles: The lateral, third and fourth ventricles appear unremarkable. The suprasellar and basilar cisterns appear unremarkable. Paranasal sinuses: Moderate bilateral ethmoid sinus, minimal bilateral maxillary sinus, mild right frontal sinus, minimal left frontal sinus and minimal bilateral sphenoid sinus mucosal thickening is seen, consistent with sinus disease. Similar findings were seen on the prior CT. Mastoid air cells: Visualized mastoid air cells are unremarkable. Orbital cavities: Visualized orbits appear unremarkable. Bones/joints: No definite acute osseous or skull abnormalities seen. Soft tissues: Unremarkable. Notes: If there is further clinical concern for intracranial pathology, MRI of the brain may be performed for further assessment. CT/CT head wo con* [id number] IMPRESSION: 1. Unremarkable CT head without contrast. No non-contrast CT evidence of intracranial hemorrhage, masses or subacute stroke. 2. Sinus disease, as noted above.
[2022-05-09 04:20] LABS: Basophils # 0.1 10^3/uL (0.0-0.1); Basophils % 0.9 %; Eosinophils # 0.5 10^3/uL (0.0-0.8); Eosinophils % 4.5 %; Hematocrit 46.6 % (42.0-52.0); Hemoglobin 15.9 g/dL (11.7-16.6); Lymphocytes # 4.7 10^3/uL (0.8-4.8); Lymphocytes % 40.8 %; Mean Corpuscular HGB Conc 34.1 g/dL (30.0-36.0); Mean Corpuscular Hemoglobin 32.5 pg (28.0-34.0); Mean Corpuscular Volume 95.3 fl (80-94); Mean Platelet Volume 9.6 fL (7.4-10.4); Monocytes # 1.2 10^3/uL (0.2-0.9); Monocytes % 10.2 %; Neutrophils # 4.97 10^3/uL (1.8-7.7); Neutrophils % 43.1 %; Nucleated Red Blood Cells % 0 %; Platelet Count 250 10^3/cmm (130-400); Red Blood Count 4.89 10^6/uL (4.1-5.3); Red Cell Distribution Width 11.8 % (12.1-15.1); White Blood Count 11.5 10^3/uL (4.0-10.0)
--- NOTE | 2022-05-09 04:22 | XRR_ITS ---
PROCEDURE INFORMATION: Exam: XR Chest Exam date and time: 05/09/2022 4:45 AM Age: 52 years old Clinical indication: Other: Seizure TECHNIQUE: Imaging protocol: Radiologic exam of the chest. Views: 1 view. COMPARISON: CR XR chest 2V* [id number] 01/05/2022 10:38 AM FINDINGS: Lungs: Unremarkable. No consolidation. Pleural spaces: Unremarkable. No pleural effusion. No pneumothorax. Heart/Mediastinum: Unremarkable. No cardiomegaly. Bones/joints: Unremarkable. XR/XR chest 1V portable [id number] IMPRESSION: No acute findings.
--- NOTE | 2022-05-09 04:23 | W.ED.GENADLT ---
HPI - General Adult General: Chief complaint: General Medical Stated complaint: SEZIURE Time Seen by Provider: 05/09/22 04:05 Source: patient and EMS Mode of arrival: EMS Limitations: no limitations History of Present Illness: 52-year-old male has a history of seizures he did call EMS tonight because been having some back pain radiates into his abdomen along with some numbness. EMS states that when they were on their way he had had a seizure in route they gave him 2 of Ativan. He does have a history of seizure disorder as well does take Dilantin for this. Patient is currently postictal he is responsive but is confused at this time likely due to his seizure. Review of Systems General: Reports: ROS unobtainable due to mental status PFSH ED PFSH: Medical History (Updated 05/09/22 @ 05:25 by Fermin Yeung MD) Arteriosclerotic cerebrovascular disease Cannabis dependence, uncomplicated Chronic hepatitis C with hepatic coma He completed Mavyret in 09/03. Chronic low back pain Major depressive disorder, recurrent, moderate MARIA DEL CARMEN (obstructive sleep apnea) Other stimulant dependence, uncomplicated Patent foramen ovale Seizures Surgical History H/O knee surgery History of hip surgery Family History Other Cancer Hypertension Social History Smoking and tobacco status: current every day smoker cigarettes Packs smoked per day: 2.5 Alcohol intake: current Alcohol intake frequency: holidays/special occasions only Housing: Homeless History of recent travel: No Physical Exam Const: EXAM LIMITATIONS: altered mental status HENMT: COMMON NORMALS: normocephalic and atraumatic HEAD & SCALP: normocephalic and atraumatic Eye: COMMON NORMALS: Equal, round and reactive pupils present and EOMs intact bilaterally PUPIL: Yes Equal, round and reactive pupils present Neck/C-Spine: COMMON NORMALS: full ROM and supple Chest: COMMONS NORMALS: normal inspection of the chest and normal palpation of entire chest wall Resp: COMMON NORMALS: normal respiratory effort, No retractions, No use of accessory muscles and clear to auscultation bilaterally AUSCULTATION: clear to auscultation bilaterally Cardio: COMMON NORMALS: regular rate, regular rhythm and No murmurs present (Cardio) RATE: regular rate RHYTHM: regular rhythm GI: COMMON NORMALS: Normal to inspection, nondistended, normoactive bowel sounds present, Soft to palpation, non-tender and no masses PALPATION: Yes Soft to palpation Extremity: COMMON NORMALS: normal to inspection and full ROM Neuro: COMMON NORMALS: moves all extremities and no focal motor deficits Psych: COMMON NORMALS: mental status grossly normal, Normal thought process present and cooperative THOUGHT PROCESS: Normal thought process present Skin: COMMON NORMALS: no rashes or lesions noted and no wounds GENERAL SKIN EXAM: no rashes or lesions noted Course Vital Signs: Vital signs: Vital Signs Temperature 97.8 F 05/09/22 04:06 Pulse Rate 69 05/09/22 05:18 Respiratory Rate 17 05/09/22 05:18 Blood Pressure 108/62 05/09/22 05:18 Pulse Oximetry 94 05/09/22 05:18 Oxygen Delivery Me thod 05/09/22 04:47 Oxygen Flow Rate 2 05/09/22 04:47 [facility] - General Adult Medical Decision Making Patient presents here with flank and back pain blood work and CT here are normal he also had a seizure on the way and he has long history of seizures head CT blood work again is normal he is to follow-up with his PCP return if worsening he understands agrees to plan. Lab Data : 05/09/22 04:12 05/09/22 04:12 Radiology Impressions Abdomen/Pelvis CT 05/09/22 04:07 IMPRESSION: 1. Diverticulosis without diverticulitis. 2. No cause for acute pain is identified. Head CT 05/09/22 04:07 IMPRESSION: 1. Unremarkable CT head without contrast. No non-contrast CT evidence of intracranial hemorrhage, masses or subacute stroke. 2. Sinus disease, as noted above. Chest X-Ray 05/09/22 04:22 IMPRESSION: No acute findings. Laboratory Results WBC 11.5 10^3/uL (4.0-10.0) H 05/09/22 04:12 RBC 4.89 10^6/uL (4.1-5.3) 05/09/22 04:12 Hgb 15.9 g/dL (11.7-16.6) 05/09/22 04:12 Hct 46.6 % (42.0-52.0) 05/09/22 04:12 MCV 95.3 fl (80-94) H 05/09/22 04:12 MCH 32.5 pg (28.0-34.0) 05/09/22 04:12 MCHC 34.1 g/dL (30.0-36.0) 05/09/22 04:12 RDW 11.8 % (12.1-15.1) L 05/09/22 04:12 Plt Count 250 10^3/cmm (130-400) 05/09/22 04:12 MPV 9.6 fL (7.4-10.4) 05/09/22 04:12 Neut % (Auto) 43.1 % 05/09/22 04:12 Lymph % (Auto) 40.8 % 05/09/22 04:12 [place] % (Auto) 10.2 % 05/09/22 04:12 Eos % (Auto) 4.5 % 05/09/22 04:12 Baso % (Auto) 0.9 % 05/09/22 04:12 Neut # (Auto) 4.97 10^3/uL (1.8-7.7) 05/09/22 04:12 Lymph # (Auto) 4.7 10^3/uL (0.8-4.8) 05/09/22 04:12 [place] # (Auto) 1.2 10^3/uL (0.2-0.9) H 05/09/22 04:12 Eos # (Auto) 0.5 10^3/uL (0.0-0.8) 05/09/22 04:12 Baso # (Auto) 0.1 10^3/uL (0.0-0.1) 05/09/22 04:12 Nucleated RBC % (auto) 0 % 05/09/22 04:12 Nucleated RBCs # 0.0 /100WBC 05/09/22 04:12 Sodium 138 mmol/L (136-145) 05/09/22 04:12 Potassium 4.0 mmol/L (3.5-5.1) 05/09/22 04:12 Chloride 99 mmol/L (98-107) 05/09/22 04:12 Carbon Dioxide 24 mmol/L (22-29) 05/09/22 04:12 Anion Gap 19.0 (5-19) 05/09/22 04:12 BUN 17 mg/dL (6-20) 05/09/22 04:12 Creatinine 0.8 mg/dL (0.7-1.2) 05/09/22 04:12 GFR Calculation 101.5 mL/min (90-130) 05/09/22 04:12 Glucose 108 mg/dL (65-115) 05/09/22 04:12 Calculated Osmolality 288 mOsm/kg (285-295) 05/09/22 04:12 Calcium 9.2 mg/dL (8.5-10.5) 05/09/22 04:12 Total Bilirubin 0.2 mg/dL (0.15-1.2) 05/09/22 04:12 AST 17 U/L (0-40) 05/09/22 04:12 ALT 25 U/L (0-41) 05/09/22 04:12 Alkaline Phosphatase 119 U/L (40-130) 05/09/22 04:12 Total Protein 7.2 g/dL (6.6-8.7) 05/09/22 04:12 Albumin 4.1 g/dL (3.5-5.2) 05/09/22 04:12 Globulin 3.1 g/dL (1.3-4.6) 05/09/22 04:12 Lipase 74 U/L (13-60) H 05/09/22 04:12 Urine Color Yellow (Yellow) 05/09/22 04:25 Urine Appearance Sl hazy (CLEAR) 05/09/22 04:25 Urine pH 6.5 (5-7) 05/09/22 04:25 Ur Specific [place] 1.015 (1.005-1.030) 05/09/22 04:25 Urine Protein Neg (Negative) 05/09/22 04:25 Urine Glucose (UA) Norm (Normal) 05/09/22 04:25 Urine Ketones Negative (Negative) 05/09/22 04:25 Urine Blood Neg (Negative) 05/09/22 04:25 Urine Nitrate Negative (Negative) 05/09/22 04:25 Urine Bilirubin Neg (Negative) 05/09/22 04:25 Urine Urobilinogen Neg mg/dL (Negative) 05/09/22 04:25 Ur Leukocyte Esterase Negative (Negative) 05/09/22 04:25 Phenytoin 9.1 ug/mL (10-20) L 05/09/22 04:12 EKG Data EKG 1: I personally reviewed and interpreted this EKG as follows: EKG interpretation date: 05/09/22 EKG interpretation time: 04:21 Interpretation: Normal sinus rhythm heart rate [address] or T wave abnormalities QRS 111 QTC 395 Computer generated interpretation: Abdomen/Pelvis CT 05/09/22 04:07 IMPRESSION: 1. Diverticulosis without diverticulitis. 2. No cause for acute pain is identified. Head CT 05/09/22 04:07 IMPRESSION: 1. Unremarkable CT head without contrast. No non-contrast CT evidence of intracranial hemorrhage, masses or subacute stroke. 2. Sinus disease, as noted above. Chest X-Ray 05/09/22 04:22 IMPRESSION: No acute findings. Discharge Plan Discharge Patient Disposition: Home Clinical Impression: Back pain, Seizure Condition: Stable Prescriptions: New Naprosyn 500 mg tablet 500 mg PO BID PRN (Reason: pain) Qty: 20 0RF No Action sertraline 100 mg tablet 100 mg PO QDAY Qty: 30 1RF quetiapine 200 mg tablet 200 mg PO QDAY Qty: 30 1RF trazodone 50 mg tablet 50 mg PO QDAY Qty: 30 1RF buspirone 10 mg tablet 10 mg PO TID Qty: 90 1RF ondansetron HCl [Zofran] 4 mg tablet 4 mg PO Q6H Discharge Orders: Discharge ED (Routine); Ordered 05/09/22 Ordered By: Fermin Yeung Referrals: Denise Bhandari FNP [Primary Care Provider] - 1-3 days Discharge Diet: Advance as tolerated Discharge Activity: Resume usual activity Patient Instructions: Recurrent Seizures in Adults (ED), Back Pain (ED) Coding Level of Care Code ED [employer] Cleaner for Chg Fwd Exam Comprehensive
[2022-05-09 04:43] LABS: Alanine Aminotransferase 25 U/L (0-41); Albumin Level 4.1 g/dL (3.5-5.2); Alkaline Phosphatase 119 U/L (40-130); Aspartate Amino Transferase 17 U/L (0-40); Blood Urea Nitrogen 17 mg/dL (6-20); Calcium 9.2 mg/dL (8.5-10.5); Carbon Dioxide 24 mmol/L (22-29); Chloride 99 mmol/L (98-107); Globulin 3.1 g/dL (1.3-4.6); Glomerular Filtration Rate 101.5 mL/min (90-130); Glucose 108 mg/dL (65-115); Lipase 74 U/L (13-60); Osmolality Calculated 288 mOsm/kg (285-295); Phenytoin Dilantin 9.1 ug/mL (10-20); Sodium 138 mmol/L (136-145); Total Bilirubin 0.2 mg/dL (0.15-1.2); Total Protein 7.2 g/dL (6.6-8.7)
--- NOTE | 2022-05-09 04:45 | PC.NURSE ---
patient returned from ct at this time.
[2022-05-09] MEDS: lactated ringers 1,000 ML 999 ML IV (04:46)
[2022-05-09 04:47] VITALS: BP 128/75; PULSE 72; RESP 20; O2SAT 96
[2022-05-09 04:51] LABS: Add Urine Microscopic? NO; Charge for UA Resulting for Rev
[2022-05-09 04:52] LABS: Bilirubin Urine Neg (Negative); Blood Urine Neg (Negative); Glucose Urine UA Norm (Normal); Ketones Urine Negative (Negative); Leukocyte Esterase Urine Negative (Negative); Nitrate Urine Negative (Negative); Protein Urine Neg (Negative); Specific Gravity, Urine 1.015 (1.005-1.030); Urine Appearance SL Hazy (CLEAR); Urine Color Yellow (Yellow); Urobilinogen Urine Neg (Negative); pH Urine 6.5 (5-7)
[2022-05-09 05:18] VITALS: BP 108/62; PULSE 69; RESP 17; O2SAT 94
[2022-05-09 05:59] VITALS: PULSE 69; RESP 18; O2SAT 98
== END 2022-05-09 06:00 | disposition home or self-care (01) ==
PROVIDERS: Emergency Provider Emergency Medicine; PCP Nurse Practitioner Family
DX: R56.9 Unspecified convulsions (principal); I25.10 Atherosclerotic heart disease of native coronary artery without angina pectoris; G47.33 Obstructive sleep apnea (adult) (pediatric); F17.210 Nicotine dependence, cigarettes, uncomplicated
CPT/HCPCS: 70450; 71045; 74176; 80053; 80185; 81003; 83690; 85025; 93005; 96360; 99285

== ENCOUNTER → 2022-05-18 15:48 | Outpatient (BNVA) | payer MEDICAID, SELFPAY | PROVIDERS: PCP Nurse Practitioner Family; Visit Provider Internal Medicine Pulmonary Disease | DX: J44.9 Chronic obstructive pulmonary disease, unspecified (principal); F17.210 Nicotine dependence, cigarettes, uncomplicated; R06.09 Other forms of dyspnea; F12.20 Cannabis dependence, uncomplicated; Z71.6 Tobacco abuse counseling; G47.33 Obstructive sleep apnea (adult) (pediatric); T78.40XA Allergy, unspecified, initial encounter | CPT/HCPCS: 71046; 99204 ==

== ENCOUNTER 2022-06-07 13:47 | Outpatient (CLI) | payer MEDICAID, SELFPAY ==
[2022-06-08 15:38] LABS: Alternaria Alternata (M6) Ige 0.14 kU/L; Alternaria Class 0/1; Bermuda Class 1; Cat Dander (E1) Ige <0.10 kU/L; Cat Dander Class 0; Common Ragweed (Short) (W1) Ig 0.45 kU/L; D. Farinae Class 0/1; Dermatophagoides Class 0; Dermatophagoides Farinae (D2) 0.14 kU/L; Dermatophagoides Pteronyssinus <0.10 kU/L; Dog Dander (E5) Ige <0.10 kU/L; Dog Dander Class 0; Elm (T8) Ige 0.45 kU/L; Elm Class 1; English Plantain (W9) Ige 0.42 kU/L; English Plantain Class 1; House Dust (Greer) (H1) Ige <0.10 kU/L; House Dust (Hollister- Stier) <0.10 kU/L; House Dust Class 0; Immunoglobulin E 15 kU/L (<OR=114); Immunoglobulin E 16 kU/L (<OR=114); Johnson Grass (G10) Ige 0.47 kU/L; Johnson Grass Cl 1; June Grass Class 1; June Grass(Kentucky Blue) (G8) 0.57 kU/L; Lamb'S Quarters (Goose Foot) 0.49 kU/L; Lamb'S Quarters Class 1; Maple (Box Elder) (T1) Ige 0.43 kU/L; Maple Class 1; Meadow Fescue (G4) Ige 0.61 kU/L; Meadow Fescue Class 1; Mucor Racemosus Class 0/1; Oak (T7) Ige 0.43 kU/L; Oak Class 1; Orchard Grass (Cocksfoot) (G3) 0.58 kU/L; Penicillium Class 0; Penicillium Notatum (M1) Ige <0.10 kU/L; Perennial Rye Grass (G5) Ige 0.55 kU/L; Perennial Rye Grass Class 1; Ragweeed Class 1; Rough Marsh Elder (W16) Ige 0.48 kU/L; Rough Marsh Elder Class 1; Sweet Vernal Class 1; Sweet Vernal Grass (G1) Ige 0.55 kU/L; Timothy Grass Class 1
[2022-06-09 18:42] LABS: Aspergillus Fumigatus, Igg Ab, 15.5 mg/L (<=102)
== END 2022-06-07 13:48 | disposition home or self-care (01) ==
LOC: LAB 13:52
PROVIDERS: PCP Nurse Practitioner Family; Visit Provider Internal Medicine Pulmonary Disease
DX: R06.09 Other forms of dyspnea (principal); T78.40XA Allergy, unspecified, initial encounter; X58.XXXA Exposure to other specified factors, initial encounter
CPT/HCPCS: 82785; 86003

== ENCOUNTER 2022-06-13 14:57 | Emergency (ER) | payer MEDICAID, SELFPAY ==
[2022-06-13 15:34] VITALS: BP 114/81; PULSE 70; RESP 12; TEMP 36.8; O2SAT 97; BMI 30.4
[2022-06-13 16:29] LABS: Urine Appearance Clear (CLEAR); Urine Color Yellow (Yellow); pH Urine 7 (5-7)
[2022-06-13 16:30] LABS: Add Urine Microscopic? YES; Bilirubin Urine Neg (Negative); Blood Urine Trace (Negative); Glucose Urine UA Norm (Normal); Ketones Urine 1+ (Negative); Leukocyte Esterase Urine Negative (Negative); Nitrate Urine Negative (Negative); Protein Urine Neg (Negative); Urobilinogen Urine Norm (Negative)
[2022-06-13 16:31] LABS: RBC Urine 0-4 /hpf (0-2)
[2022-06-13 16:32] LABS: Add Urine Culture? No
[2022-06-13 17:44] LABS: Basophils # 0.1 10^3/uL (0.0-0.1); Basophils % 0.9 %; Eosinophils # 0.5 10^3/uL (0.0-0.8); Eosinophils % 4.3 %; Hematocrit 47.8 % (42.0-52.0); Hemoglobin 16.4 g/dL (11.7-16.6); Lymphocytes # 3.4 10^3/uL (0.8-4.8); Lymphocytes % 32.3 %; Mean Corpuscular HGB Conc 34.3 g/dL (30.0-36.0); Mean Corpuscular Hemoglobin 33.3 pg (28.0-34.0); Mean Corpuscular Volume 97.2 fl (80-94); Mean Platelet Volume 9.8 fL (7.4-10.4); Monocytes # 0.8 10^3/uL (0.2-0.9); Neutrophils # 5.66 10^3/uL (1.8-7.7); Neutrophils % 54.2 %; Nucleated Red Blood Cells % 0 %; Platelet Count 222 10^3/cmm (130-400); Red Blood Count 4.92 10^6/uL (4.1-5.3); Red Cell Distribution Width 11.8 % (12.1-15.1); White Blood Count 10.4 10^3/uL (4.0-10.0)
[2022-06-13] MEDS: sodium chloride 0.9% 500 ML IV (18:05)
--- NOTE | 2022-06-13 18:08 | USR_ITS ---
PROCEDURE INFORMATION: Exam: US Abdomen, Limited; Right Upper Quadrant Exam date and time: 06/13/2022 6:40 PM Age: 52 years old Clinical indication: Abdominal pain; Acute; Additional info: Ruq pain, n/v, increasing pain after eating TECHNIQUE: Imaging protocol: Real time ultrasound of the abdomen with image documentation. Limited exam focused on the right upper quadrant. COMPARISON: US gall bladder [id number] 11/10/2017 1:47 PM FINDINGS: Liver: Unremarkable. Gallbladder: Contracted with stones. No pericholecystic fluid. Positive sonographic Silva's sign, as per the household appliance assembler. This is a nonspecific finding. Biliary ducts: Normal. No stones. No dilation. Pancreas: Unremarkable as visualized. Right kidney: No mass. No definite stones. No hydronephrosis. US/US gall bladder [id number] IMPRESSION: Contracted gallbladder with stones, possibly reflecting chronic cholecystitis. If clinically indicated, HIDA scan would provide a more sensitive evaluation for acute gallbladder pathology.
[2022-06-13 18:09] LABS: Alanine Aminotransferase 22 U/L (0-41); Albumin Level 4.1 g/dL (3.5-5.2); Alkaline Phosphatase 145 U/L (40-130); Anion Gap 9.9 (5-19); Aspartate Amino Transferase 15 U/L (0-40); Blood Urea Nitrogen 13 mg/dL (6-20); Calcium 9.1 mg/dL (8.5-10.5); Carbon Dioxide 28 mmol/L (22-29); Chloride 99 mmol/L (98-107); Globulin 3.6 g/dL (1.3-4.6); Glomerular Filtration Rate 88.6 mL/min (90-130); Glucose 102 mg/dL (65-115); Lipase 55 U/L (13-60); Osmolality Calculated 276 mOsm/kg (285-295); Potassium 3.9 mmol/L (3.5-5.1); Sodium 133 mmol/L (136-145); Total Bilirubin 0.2 mg/dL (0.15-1.2); Total Protein 7.7 g/dL (6.6-8.7)
--- NOTE | 2022-06-13 18:24 | W.ED.ABDPA2 ---
HPI - Abdominal Pain General: Chief Complaint: Abdominal Pain Stated Complaint: Vomitting Time Seen by Provider: 06/13/22 17:50 History of Present Illness: Patient is a 52-year-old male comes to the ED with abdominal pain. Symptoms started several weeks ago. Abdominal pain is located in the right upper quadrant and the abdomen. He rates his pain currently a 7 out of 10. Abdominal pain worsens after he eats. He also endorses having diarrhea, nausea and vomiting and those symptoms worsen after he eats as well. He saw his PCP several days ago for the same issue and they ordered an outpatient ultrasound of his gallbladder. Today his pain has gotten worse along with his nausea and vomiting so he came here to the ED to be evaluated. Associated Symptoms: Reports diarrhea, nausea and vomiting; Denies chills, constipation, dysuria, fever(s), hematochezia and hematuria Review of Systems Const: Denies: fever(s), chills or fatigue Eyes: Denies: change in vision or eye discomfort ENMT: Denies: throat pain, odynophagia, nasal discharge or nasal congestion Card: Denies: chest pain, palpitations, edema, swelling of feet/ankles, dyspnea on exertion or orthopnea Resp: Denies: dyspnea, productive cough or non-productive cough GI: Reports: abdominal pain, nausea, vomiting and diarrhea; Denies: constipation or hematochezia : Denies: flank pain, difficulty urinating, dysuria or hematuria Musc: Denies: neck pain, back pain or extremity swelling Skin/Breast: Denies: rash or new lesions Neuro: Denies: headache(s), numbness in extremities or weakness in extremities PFS ED PFSH: Medical History (Updated 06/13/22 @ 20:42 by JOLENE Mtz) Arteriosclerotic cerebrovascular disease Cannabis dependence, uncomplicated Chronic hepatitis C with hepatic coma He completed [facility] in 09/03. Chronic low back pain Major depressive disorder, recurrent, moderate MARIA DEL CARMEN (obstructive sleep apnea) Other stimulant dependence, uncomplicated Patent foramen ovale Seizures Surgical History H/O knee surgery History of hip surgery Family History Other Cancer Hypertension Social History Smoking and tobacco status: current every day smoker cigarettes Packs smoked per day: 3.5 Years cigarettes smoked: 45 Alcohol intake: current Alcohol intake frequency: holidays/special occasions only Housing: Homeless History of recent travel: No Physical Exam Const: COMMON NORMALS: patient oriented x3 and alert GENERAL APPEARANCE: cooperative HENMT: COMMON NORMALS: normocephalic HEAD & SCALP: normocephalic MOUTH: Normal oral and palatal mucosa present THROAT: posterior oropharynx normal and uvula midline Neck/C-Spine: COMMON NORMALS: supple GENERAL: Yes normal visual inspection Resp: COMMON NORMALS: normal respiratory effort, No retractions, No use of accessory muscles and clear to auscultation bilaterally AUSCULTATION: clear to auscultation bilaterally Cardio: COMMON NORMALS: regular rate, regular rhythm, S1 normal heart sound present, S2 normal heart sound present, No gallops present (Cardio), No clicks present (Cardio), No murmurs present (Cardio) and Peripheral pulses 2+ throughout RATE: regular rate RHYTHM: regular rhythm HEART SOUNDS: S1 normal heart sound present and S2 normal heart sound present PERIPHERAL PULSES: Peripheral pulses 2+ throughout GI: COMMON NORMALS: Normal to inspection, nondistended, normoactive bowel sounds present, Soft to palpation and no masses PALPATION: Yes Soft to palpation and Yes Tenderness to palpation present (GI) Details: RUQ : COMMON NORMALS: Yes no CVA tenderness BLADDER/KIDNEY EXAM: Yes no CVA tenderness Back/Pelvis: COMMON NORMALS: no CVA tenderness Extremity: COMMON NORMALS: normal to inspection Neuro: COMMON NORMALS: patient oriented x3 SENSORIUM/ORIENTATION: Yes alert GAIT: Yes Normal gait present Skin: GENERAL SKIN EXAM: dry skin Course ED course: After IV pain meds and Zofran his symptoms have completely resolved. He is able to tolerate p.o. fluids here in the ED without any nausea/vomiting or worsening pain. Vital Signs: Vital signs: Vital Signs Temperature 98.8 F 06/13/22 21:06 Pulse Rate 69 06/13/22 21:06 Respiratory Rate 15 06/13/22 21:06 Blood Pressure 102/74 06/13/22 21:06 Pulse Oximetry 95 06/13/22 21:06 Oxygen Delivery Me thod 06/13/22 20:31 MDM - Abdominal Pain Medical Decision Making Patient is a 52-year-old male comes to the ED with abdominal pain. Symptoms started several weeks ago. Abdominal pain is located in the right upper quadrant and the abdomen. Symptoms worsen after eating and he endorses having nausea and vomiting as well. Vitals are stable. Patient appears nontoxic and in no acute distress. He has some right upper quadrant abdominal tenderness to palpation but rest of exam is benign. CBC, UA and CMP were unremarkable. Liver enzymes normal and T bili is normal. Ultrasound of right gallbladder showed some gallstones but no signs of acute cholecystitis. Patient was given IV fluids, Zofran and morphine and his symptoms completely resolved. He was able to tolerate p.o. fluids. I placed an order with case mgr patient be referred to general surgery for follow-up on abdominal pain and gallstones. Patient was stable for discharge home and sent home with a prescription for hydrocodone for pain and Zofran for nausea. Return to ED precautions given. Patient understood and agreed with plan. Lab Data I reviewed the patient's lab results. : 06/13/22 17:20 06/13/22 17:20 Labs/Radiology: Radiology Impressions Gallbladder Ultrasound 06/13/22 18:08 IMPRESSION: Contracted gallbladder with stones, possibly reflecting chronic cholecystitis. If clinically indicated, HIDA scan would provide a more sensitive evaluation for acute gallbladder pathology. Laboratory Results WBC 10.4 10^3/uL (4.0-10.0) H 06/13/22 17:20 RBC 4.92 10^6/uL (4.1-5.3) 06/13/22 17:20 Hgb 16.4 g/dL (11.7-16.6) 06/13/22 17:20 Hct 47.8 % (42.0-52.0) 06/13/22 17:20 MCV 97.2 fl (80-94) H 06/13/22 17:20 MCH 33.3 pg (28.0-34.0) 06/13/22 17:20 MCHC 34.3 g/dL (30.0-36.0) 06/13/22 17:20 RDW 11.8 % (12.1-15.1) L 06/13/22 17:20 Plt Count 222 10^3/cmm (130-400) 06/13/22 17:20 MPV 9.8 fL (7.4-10.4) 06/13/22 17:20 Neut % (Auto) 54.2 % 06/13/22 17:20 Lymph % (Auto) 32.3 % 06/13/22 17:20 Wheeler % (Auto) 8.0 % 06/13/22 17:20 Eos % (Auto) 4.3 % 06/13/22 17:20 Baso % (Auto) 0.9 % 06/13/22 17:20 Neut # (Auto) 5.66 10^3/uL (1.8-7.7) 06/13/22 17:20 Lymph # (Auto) 3.4 10^3/uL (0.8-4.8) 06/13/22 17:20 Wheeler # (Auto) 0.8 10^3/uL (0.2-0.9) 06/13/22 17:20 Eos # (Auto) 0.5 10^3/uL (0.0-0.8) 06/13/22 17:20 Baso # (Auto) 0.1 10^3/uL (0.0-0.1) 06/13/22 17:20 Nucleated RBC % (auto) 0 % 06/13/22 17:20 Nucleated RBCs # 0.0 /100WBC 06/13/22 17:20 Sodium 133 mmol/L (136-145) L 06/13/22 17:20 Potassium 3.9 mmol/L (3.5-5.1) 06/13/22 17:20 Chloride 99 mmol/L (98-107) 06/13/22 17:20 Carbon Dioxide 28 mmol/L (22-29) 06/13/22 17:20 Anion Gap 9.9 (5-19) 06/13/22 17:20 BUN 13 mg/dL (6-20) 06/13/22 17:20 Creatinine 0.9 mg/dL (0.7-1.2) 06/13/22 17:20 GFR Calculation 88.6 mL/min (90-130) L 06/13/22 17:20 Glucose 102 mg/dL (65-115) 06/13/22 17:20 Calculated Osmolality 276 mOsm/kg (285-295) L 06/13/22 17:20 Calcium 9.1 mg/dL (8.5-10.5) 06/13/22 17:20 Total Bilirubin 0.2 mg/dL (0.15-1.2) 06/13/22 17:20 AST 15 U/L (0-40) 06/13/22 17:20 ALT 22 U/L (0-41) 06/13/22 17:20 Alkaline Phosphatase 145 U/L (40-130) H 06/13/22 17:20 Total Protein 7.7 g/dL (6.6-8.7) 06/13/22 17:20 Albumin 4.1 g/dL (3.5-5.2) 06/13/22 17:20 Globulin 3.6 g/dL (1.3-4.6) 06/13/22 17:20 Lipase 55 U/L (13-60) 06/13/22 17:20 Urine Color Yellow (Yellow) 06/13/22 16:10 Urine Appearance Clear (CLEAR) 06/13/22 16:10 Urine pH 7 (5-7) 06/13/22 16:10 Ur Specific [place] 1.010 (1.005-1.030) 06/13/22 16:10 Urine Protein Neg (Negative) 06/13/22 16:10 Urine Glucose (UA) Norm (Normal) 06/13/22 16:10 Urine Ketones 1+ (Negative) H 06/13/22 16:10 Urine Blood Trace (Negative) H 06/13/22 16:10 Urine Nitrate Negative (Negative) 06/13/22 16:10 Urine Bilirubin Neg (Negative) 06/13/22 16:10 Urine Urobilinogen Norm mg/dL (Negative) 06/13/22 16:10 Ur Leukocyte Esterase Negative (Negative) 06/13/22 16:10 Urine RBC 0-4 /hpf (0-2) H 06/13/22 16:10 Urine WBC None /hpf (0-5) 06/13/22 16:10 Ur Squamous Epith Cells None /hpf (0-5) 06/13/22 16:10 Amorphous Sediment Not Reportable 06/13/22 16:10 Urine Bacteria None /hpf (NONE) 06/13/22 16:10 Discharge Plan Discharge Patient Disposition: Home Clinical Impression: Gallstones Condition: Stable Prescriptions: New ondansetron 4 mg tablet,disintegrating 4 mg PO Q8H PRN (Reason: nausea and vomiting) Qty: 30 0RF No Action multivitamin Tablet 1 tab PO DAILY phenytoin sodium extended 300 mg capsule 300 mg PO BID furosemide 20 mg tablet 20 mg PO DAILY mirtazapine 15 mg tablet 15 mg PO DAILY albuterol sulfate 90 mcg/actuation HFA aerosol inhaler 2 puff inhalation Q6H PRN aripiprazole 10 mg tablet 10 mg PO DAILY Anoro Ellipta 62.5-25 mcg/actuation blister with device 1 inh inhalation DAILY metoprolol tartrate 100 mg tablet 100 mg PO BID potassium chloride 20 mEq tablet,ER particles/crystals 20 meq PO DAILY lisinopril 5 mg tablet 5 mg PO DAILY buspirone 10 mg tablet 20 mg PO BID sertraline 100 mg tablet 50 mg PO QDAY trazodone 50 mg tablet 100 mg PO QDAY Discharge Orders: Discharge ED (Routine); Ordered 06/13/22 Ordered By: Oskar Iqbal Referrals: Denise Bhandari FNP [Primary Care Provider] - Discharge Diet: Advance as tolerated and Clear Liquid Discharge Activity: Increase activity as tolerated Patient Instructions: Biliary Colic (ED), Gallstones (ED), Opioid Safety Activity Restrictions/Additional Instructions: Follow-up with medical provider as directed. Case management should be contacting you in the next several days to set up an appointment with general surgery for follow-up on gallstones. Clear liquid diet for the next 24 hours then slowly advance diet as tolerated. Take medications as prescribed. Return to the ER or your medical provider if condition worsens. Please read and understand discharge instructions. Thank you for choosing [facility] for your healthcare needs today. Please realize this is an emergency room and that we are providing you with a medical screening exam and this may not be complete and all inclusive of all the testing and or work up that you may need to determine your ailment or severity of your illness. It is very important that you follow up as instructed or that you return to the Emergency Department should you have concerns or if your condition changes or worsens in any way. Coding Level of Care Code ED Rehab Consultant for Serena Carvalho Exam Comprehensive
[2022-06-13 18:49] VITALS: RESP 16; O2SAT 95
[2022-06-13] MEDS: morphine 4 mg/mL SDV 1 mL IVP (18:49)
[2022-06-13] MEDS: ondansetron 2 mg/ML SDV 2 mL 4 MG IVP (18:49)
[2022-06-13 18:54] VITALS: BP 118/79; PULSE 69; RESP 17; O2SAT 97
[2022-06-13 20:31] VITALS: BP 117/77; PULSE 71; RESP 17; O2SAT 95
[2022-06-13 21:06] VITALS: BP 102/74; PULSE 69; RESP 15; TEMP 37.1; O2SAT 95
[2022-06-13] MEDS: HYDROcodone-acetaminophen 5-325 mg Tablet 2 TAB PO (21:07)
[2022-06-13] MEDS: ondansetron 4 MG Tablet PO (21:07)
--- NOTE | 2022-06-13 21:12 | PC.NURSE ---
2 hydrocodone tabs and 1 zofran sent home with patient per orders
--- NOTE | 2022-06-15 12:39 | DCPLANNER ---
Addendum entered by Theresa Mendoza 06/24/22 14:18: Patient had a follow up appointment scheduled for 06.18.22 Dr. Zhou at general surgery - patient did attend appointment. Original Note: manager trust had message to schedule a follow up appointment for patient with general surgery. manager trust sent patients information to the front office staff at general surgery. Patients information will be printed and reviewed. Clinic will call patient with appointment information.
== END 2022-06-13 21:12 | disposition home or self-care (01) ==
PROVIDERS: Student in an Organized Health Care Education/Training Program; Emergency Provider Physician Assistant; PCP Nurse Practitioner Family
DX: K80.80 Other cholelithiasis without obstruction (principal); Z86.19 Personal history of other infectious and parasitic diseases; F17.210 Nicotine dependence, cigarettes, uncomplicated
CPT/HCPCS: 76705; 80053; 81001; 83690; 85025; 96361; 96374; 96375; 99285; J2270; J2405; J7040; Q0162

== ENCOUNTER 2022-06-14 01:00 | Outpatient (CLI) | payer MEDICAID, SELFPAY | END 2022-06-14 22:45 | disposition home or self-care (01) | LOC: RAD 06-21 22:45 | PROVIDERS: PCP Nurse Practitioner Family; Visit Provider Internal Medicine Cardiovascular Disease | DX: R55 Syncope and collapse (principal); R06.09 Other forms of dyspnea; Q21.12 Patent foramen ovale; Z86.73 Personal history of transient ischemic attack (TIA), and cerebral infarction without residual deficits; G47.33 Obstructive sleep apnea (adult) (pediatric); F12.20 Cannabis dependence, uncomplicated | CPT/HCPCS: 93270; 99204 ==

== ENCOUNTER → 2022-06-18 13:04 | Outpatient (BNVA) | payer MEDICAID, SELFPAY | PROVIDERS: PCP Nurse Practitioner Family; Visit Provider Surgery | DX: K80.20 Calculus of gallbladder without cholecystitis without obstruction (principal) | CPT/HCPCS: 99203 ==

== ENCOUNTER 2022-07-13 09:35 | Outpatient (CLI) | payer MEDICAID, SELFPAY ==
--- NOTE | 2022-07-13 09:45 | CT_ITS ---
WS: [id number] LDCT LUNG CANCER SCREENING TECHNIQUE: Noncontrast CT of the chest with coronal and sagittal reformatted images. CLINICAL INFORMATION: lung screening COMPARISON: CT 5 14,019 DLP: 69.70 mGy.cm DIvol: Mean CTDIvol: 1.60 (mGy) All CT scans at [facility] use at least one of these dose optimization techniques: automat ed exposure control; mA and/or kV adjustment per patient size (includes targeted exams where dose is matched to clinical indication); or iterative reconstruction. FINDINGS:Lungs are well aerated. No acute pulmonary infiltrates. No focal pneumonia or pleural fluid. 2 mm noncalcified nodule superior segment RIGHT lower lobe. A few tiny 2-3 mm noncalcified nodules R IGHT lower lobe. No suspicious pulmonary parenchymal opacities. Normal caliber thoracic aorta. No mediastinal or hilar lymphadenopathy. Coronary calcification. No ax illary lymphadenopathy. Normal GE junction. Mild thoracic curve. Mild thoracic kyphosis. No axillary lymphadenopathy. CT/CT lung screening [id number] IMPRESSION: LUNG-RADS: 2-Benign Appearance or Behavior FOLLOW UP: 12 Month: Continue annual screening with LDCT
== END 2022-07-13 09:36 | disposition home or self-care (01) ==
LOC: RAD 09:35
PROVIDERS: PCP Nurse Practitioner Family; Visit Provider Internal Medicine Pulmonary Disease
DX: Z12.2 Encounter for screening for malignant neoplasm of respiratory organs (principal); F17.210 Nicotine dependence, cigarettes, uncomplicated
CPT/HCPCS: 71271

== ENCOUNTER → 2022-07-14 15:06 | Outpatient (BNVA) | payer MEDICAID, SELFPAY | PROVIDERS: PCP Nurse Practitioner Family; Visit Provider Specialist | DX: M25.551 Pain in right hip (principal) | CPT/HCPCS: 73502; 99205 ==

== ENCOUNTER 2022-07-27 10:32 | Outpatient (CLI) | payer MEDICAID, SELFPAY ==
--- NOTE | 2022-07-27 11:36 | USCV_ITS ---
Mal Jack Age: 52 Gender: M : 1970 Exam Date: 07/27/2022 12:13 Ordering Phys: Dolly Brumfield MD ([email or web address]) Technologist: RON Exam Location: [facility] [place] Indication: SHORTNESS OF BREATH, PFO, CVA BP: 134 / 80 HR: 62 Rhythm: Sinus Technical Quality: Adequate MEASUREMENTS (Male / Female) Normal Values 2D ECHO LVOT Diameter 2.0 cm LV Ejection Fraction MOD 2C 61.9 % LV Ejection Fraction 2C AL 61.2 % LA Diameter 3.1 cm LA Width 3.1 cm LA Height 4.5 cm RA Width 2.8 cm RA Height 4.2 cm Aorta at Sinotubular Diameter 2.4 cm IVC Diameter 1.8 cm M-MODE Aortic Annulus Diameter 2.8 cm LA Ao Ratio MM 1.1 MV E Point Septal Separation 0.3 cm DOPPLER AV Peak Velocity 136.0 cm/s LVOT Peak Velocity 107.0 cm/s AV Area Cont Eq vti 2.3 cm squared AV Area Cont Eq pk 2.5 cm squared MV Peak Velocity 110.0 cm/s MV Area PHT 5.0 cm squared Mitral E to A Ratio 1.4 MV E' Velocity 55.5 cm/s Mitral E to MV E' Ratio 8.8 Mitral E to LV E' Lateral Ratio 7.6 Mitral E to LV E' Septal Ratio 10.3 TR Peak Velocity 165.9 cm/s TR Peak Gradient 11.0 mmHg TR Mean Velocity 115.2 cm/s TR Mean Gradient 6.3 mmHg TR Velocity Time Integral 39.3 cm TV Peak E Velocity 32.0 cm/s Right Atrial Pressure 3.0 mmHg Pulmonary Artery Systolic Pressu 14.0 mmHg PV Peak Velocity 130.0 cm/s RV Acceleration Time 0.2 s RV Ejection Time 0.3 s RV AcT/ET 0.5 FINDINGS Left Ventricle Normal left ventricular size, systolic function and wall thickness, with no regional wall motion abnormalities. Left ventricular ejection fraction is estimated at 60 %. Normal diastolic function. Right Ventricle Normal right ventricular size and systolic function. Right ventricular systolic pressure 14 mmHg. Right Atrium Normal right atrial size. No evidence of intracardiac shunt by agitated saline (bubble) study. Left Atrium Normal left atrial size. Mitral Valve Structurally normal mitral valve. No mitral valve stenosis. No mitral valve regurgitation. Aortic Valve Structurally normal trileaflet aortic valve. No aortic valve stenosis. No aortic valve regurgitation. Tricuspid Valve Structurally normal tricuspid valve. No tricuspid valve stenosis. Trace tricuspid valve regurgitation. Pulmonic Valve Structurally normal pulmonic valve. No pulmonary valve stenosis. No pulmonary valve regurgitation. Pericardium No pericardial effusion. Aorta Normal size aortic root and proximal ascending aorta. IVC Normal IVC dimension with >50% respiratory change of the inferior vena cava. CONCLUSIONS 1. Normal left ventricular size, systolic function and wall thickness, with no regional wall motion abnormalities. Left ventricular ejection fraction is estimated at 60 %. Normal diastolic function. 2. Normal right ventricular size and systolic function 3. Trace tricuspid valve regurgitation. 4. No evidence of intracardiac shunt by agitated saline (bubble) study. 5. No prior similar studies to compare. Dolly Brumfield MD (Electronically Signed) Final Date: 31 July 2022 18:47 S
== END 2022-07-27 10:33 | disposition home or self-care (01) ==
LOC: RAD 10:36
PROVIDERS: PCP Nurse Practitioner Family; Visit Provider Internal Medicine Cardiovascular Disease
DX: I63.9 Cerebral infarction, unspecified (principal); Q21.12 Patent foramen ovale; R06.02 Shortness of breath; I07.1 Rheumatic tricuspid insufficiency
CPT/HCPCS: C8929

== ENCOUNTER 2022-07-27 10:33 | Outpatient (CLI) | payer MEDICAID, SELFPAY | END 2022-07-27 10:34 | disposition home or self-care (01) | LOC: RT 10:36 | PROVIDERS: PCP Nurse Practitioner Family; Visit Provider Internal Medicine Pulmonary Disease | DX: J44.9 Chronic obstructive pulmonary disease, unspecified (principal) | CPT/HCPCS: 94010; 94618; 94726; 94729 ==

== ENCOUNTER 2022-08-04 20:00 | Outpatient (CLI) | payer MEDICAID, SELFPAY | END 2022-08-04 20:01 | disposition home or self-care (01) | LOC: SLEEP 08-05 07:50 | PROVIDERS: PCP Nurse Practitioner Family; Visit Provider Nurse Practitioner Family | DX: G47.31 Primary central sleep apnea (principal) | CPT/HCPCS: 95811 ==

== ENCOUNTER → 2022-08-12 13:07 | Outpatient (BNVA) | payer MEDICAID, SELFPAY | PROVIDERS: PCP Nurse Practitioner Family; Visit Provider Internal Medicine Pulmonary Disease | DX: J44.9 Chronic obstructive pulmonary disease, unspecified (principal); J22 Unspecified acute lower respiratory infection; R06.09 Other forms of dyspnea; G47.33 Obstructive sleep apnea (adult) (pediatric); F12.20 Cannabis dependence, uncomplicated; Z71.6 Tobacco abuse counseling; J45.909 Unspecified asthma, uncomplicated; J82.83 Eosinophilic asthma; F17.210 Nicotine dependence, cigarettes, uncomplicated | CPT/HCPCS: 71046; 99214 ==

== ENCOUNTER 2022-08-19 12:29 | Emergency (ER) | payer MEDICAID, SELFPAY ==
[2022-08-19 12:54] VITALS: BP 104/70; PULSE 73; RESP 16; TEMP 36.7; O2SAT 96
[2022-08-19 13:54] LABS: Basophils # 0.1 10^3/uL (0.0-0.1); Basophils % 1.1 %; Eosinophils # 0.3 10^3/uL (0.0-0.8); Eosinophils % 2.9 %; Hematocrit 49.3 % (42.0-52.0); Hemoglobin 16.5 g/dL (11.7-16.6); Lymphocytes # 2.2 10^3/uL (0.8-4.8); Lymphocytes % 21.2 %; Mean Corpuscular HGB Conc 33.5 g/dL (30.0-36.0); Mean Corpuscular Hemoglobin 32.7 pg (28.0-34.0); Mean Corpuscular Volume 97.6 fl (80-94); Mean Platelet Volume 9.7 fL (7.4-10.4); Monocytes # 1.1 10^3/uL (0.2-0.9); Neutrophils # 6.58 10^3/uL (1.8-7.7); Neutrophils % 63.3 %; Nucleated Red Blood Cells % 0 %; Platelet Count 247 10^3/cmm (130-400); Red Blood Count 5.05 10^6/uL (4.1-5.3); Red Cell Distribution Width 11.7 % (12.1-15.1); White Blood Count 10.4 10^3/uL (4.0-10.0)
[2022-08-19 15:23] LABS: Alanine Aminotransferase 32 U/L (0-41); Albumin Level 4.4 g/dL (3.5-5.2); Aspartate Amino Transferase 21 U/L (0-40); Blood Urea Nitrogen 9 mg/dL (6-20); Calcium 8.7 mg/dL (8.5-10.5); Carbon Dioxide 22 mmol/L (22-29); Chloride 98 mmol/L (98-107); Globulin 3.4 g/dL (1.3-4.6); Glucose 96 mg/dL (65-115); Lipase 51 U/L (13-60); Total Bilirubin 0.3 mg/dL (0.15-1.2); Total Protein 7.8 g/dL (6.6-8.7)
[2022-08-19 15:38] LABS: Anion Gap 18.1 (5-19); Osmolality Calculated 277 mOsm/kg (285-295); Potassium 4.1 mmol/L (3.5-5.1); Sodium 134 mmol/L (136-145)
[2022-08-19 15:39] LABS: Alkaline Phosphatase 186 U/L (40-130); Glomerular Filtration Rate 141.5 mL/min (90-130)
--- NOTE | 2022-08-19 15:39 | CTR_ITS ---
PROCEDURE INFORMATION: Exam: CT Abdomen And Pelvis With Contrast Exam date and time: 08/19/2022 4:35 PM Age: 52 years old Clinical indication: Abdominal pain; Rebound pain; Right lower quadrant (rlq); Additional info: Right side abdominal pain TECHNIQUE: Imaging protocol: Computed tomography of the abdomen and pelvis with contrast. Radiation optimization: All CT scans at this facility use at least one of these dose optimization techniques: automated exposure control; mA and/or kV adjustment per patient size (includes targeted exams where dose is matched to clinical indication); or iterative reconstruction. Contrast material: OMNIPAQUE 350; Contrast volume: 95 ml; Contrast route: INTRAVENOUS (IV); COMPARISON: CT abdomen pelvis wo con [id number] 05/09/2022 4:36 AM RADIATION DOSE METRICS: Total DLP (mGy-cm): 507.83 FINDINGS: Lungs: Bibasilar atelectasis. Liver: Hepatic steatosis. Gallbladder and bile ducts: Cholecystectomy. Pancreas: Normal. No ductal dilation. Spleen: Normal. No splenomegaly. Adrenal glands: Normal. No mass. Kidneys and ureters: Normal. No hydronephrosis. Stomach and bowel: Prominent fluid and mucosal enhancement in the stomach, small bowel and colon suggestive of a gastroenterocolitis in the appropriate clinical setting. Mild diverticulosis without diverticulitis. Appendix: No evidence of appendicitis. Intraperitoneal space: Unremarkable. No free air. No significant fluid collection. Vasculature: Unremarkable. No abdominal aortic aneurysm. Lymph nodes: Unremarkable. No enlarged lymph nodes. Urinary bladder: Unremarkable as visualized. Reproductive: Unremarkable as visualized. Bones/joints: Unremarkable. No acute fracture. Soft tissues: Unremarkable. CT/CT abdomen pelvis w con* [id number] IMPRESSION: 1. Prominent fluid and mucosal enhancement in the stomach, small bowel and colon suggestive of a gastroenterocolitis in the appropriate clinical setting. 2. Bibasilar atelectasis. 3. Hepatic steatosis. 4. Cholecystectomy. 5. Mild diverticulosis without diverticulitis.
[2022-08-19] MEDS: morphine 4 mg/mL SDV 1 mL 2 MG IVP (16:01)
[2022-08-19] MEDS: ondansetron 2 mg/ML SDV 2 mL 4 MG IVP (16:02)
--- NOTE | 2022-08-19 16:09 | W.ED.ABDPA2 ---
Documented by User: ZACHARIAH Fisher 08/19/22 17:23 HPI - Abdominal Pain General: Chief Complaint: Abdominal Pain Stated Complaint: ABD PAIN Time Seen by Provider: 08/19/22 15:23 History of Present Illness: Patient is in today with complaints of abdominal pain. He reports that he has been having abdominal pain and nausea ongoing for over a month now. He reports that he does have upcoming surgery to remove his gallbladder for gallstones on the 16th of the month. He reports that he had to have cardiac clearance which she has received. He states that this morning he ate a taco and then felt very nauseated and while he was rushing to the sink he felt something pop in his abdomen and then he had excruciating pain. He reports that the last time he has vomited is 130 this morning and was not related at all to the current abdominal pain that he has. Denies any fever but has had some chills and not feeling well yesterday. Associated Symptoms: Reports chills, nausea and vomiting; Denies dysuria and fever(s) Review of Systems Const: Reports: chills; Denies: fever(s) or body aches Card: Denies: chest pain, palpitations or irregular heart rhythm Resp: Denies: dyspnea, productive cough or non-productive cough GI: Reports: abdominal pain, nausea and vomiting : Denies: flank pain, difficulty urinating or dysuria PFSH ED PFSH: Medical History Amputation thumb Arteriosclerotic cerebrovascular disease Cannabis dependence, uncomplicated Chronic hepatitis C with hepatic coma He completed [employer] in 09/03. Chronic low back pain Dementia Major depressive disorder, recurrent, moderate MARIA DEL CARMEN (obstructive sleep apnea) Other stimulant dependence, uncomplicated Patent foramen ovale Seizures Surgical History H/O knee surgery History of hip surgery Previous back surgery S/P coronary angiogram Family History Other Cancer Hypertension Social History Smoking and tobacco status: current every day smoker cigarettes Packs smoked per day: 3 Years cigarettes smoked: 45 [ Other cigarette details: Smokes up to 3 ppd] Alcohol intake: current Alcohol intake frequency: holidays/special occasions only Housing: Homeless History of recent travel: No Physical Exam Const: COMMON NORMALS: patient oriented x3 and alert OTHER: Patient is an unkempt male that is resting on his side holding his abdomen in the bed. He is alert and cooperative but appears to be in pain Neck/C-Spine: COMMON NORMALS: no JVD Resp: COMMON NORMALS: normal respiratory effort, No use of accessory muscles and clear to auscultation bilaterally AUSCULTATION: clear to auscultation bilaterally Cardio: COMMON NORMALS: no JVD, regular rate, regular rhythm, S1 normal heart sound present and S2 normal heart sound present RATE: regular rate RHYTHM: regular rhythm HEART SOUNDS: S1 normal heart sound present and S2 normal heart sound present GI: COMMON NORMALS: Soft to palpation INSPECTION: Yes normal to inspection AUSCULTATION: Yes Hyperactive bowel sounds present PALPATION: Yes Soft to palpation, Yes Tenderness to palpation present (GI) Details: LLQ, RLQ and RUQ, Yes Guarding due to palpation present (GI) in the RLQ and in the RUQ and Yes Other GI palpation findings present (Positive for guarding tenderness right lower quadrant abdomen. ) Neuro: COMMON NORMALS: patient oriented x3 SENSORIUM/ORIENTATION: Yes alert Course Vital Signs: Vital signs: Vital Signs Temperature 98.0 F 08/19/22 16:24 Pulse Rate 78 08/19/22 16:24 Respiratory Rate 17 08/19/22 16:24 Blood Pressure 110/68 08/19/22 16:24 Pulse Oximetry 98 08/19/22 16:24 Oxygen Delivery Me thod 08/19/22 16:24 MDM - Abdominal Pain Medical Decision Making Differentials include biliary colic, cholecystitis, cholelithiasis, appendicitis Lab Data 08/19/22 13:46 08/19/22 14:48 Labs/Radiology: Radiology Impressions Abdomen/Pelvis CT 08/19/22 15:39 IMPRESSION: 1. Prominent fluid and mucosal enhancement in the stomach, small bowel and colon suggestive of a gastroenterocolitis in the appropriate clinical setting. 2. Bibasilar atelectasis. 3. Hepatic steatosis. 4. Cholecystectomy. 5. Mild diverticulosis without diverticulitis. Gallbladder Ultrasound 08/19/22 17:14 IMPRESSION: 1. Cholelithiasis, negative for cholecystitis. 2. Hepatic steatosis. 3. Common bile duct dilated to 8.7 mm without obstructing lesion, MRCP could further characterize this. Laboratory Results WBC 10.4 10^3/uL (4.0-10.0) H 08/19/22 13:46 RBC 5.05 10^6/uL (4.1-5.3) 08/19/22 13:46 Hgb 16.5 g/dL (11.7-16.6) 08/19/22 13:46 Hct 49.3 % (42.0-52.0) 08/19/22 13:46 MCV 97.6 fl (80-94) H 08/19/22 13:46 MCH 32.7 pg (28.0-34.0) 08/19/22 13:46 MCHC 33.5 g/dL (30.0-36.0) 08/19/22 13:46 RDW 11.7 % (12.1-15.1) L 08/19/22 13:46 Plt Count 247 10^3/cmm (130-400) 08/19/22 13:46 MPV 9.7 fL (7.4-10.4) 08/19/22 13:46 Neut % (Auto) 63.3 % 08/19/22 13:46 Lymph % (Auto) 21.2 % 08/19/22 13:46 [place] % (Auto) 11.0 % 08/19/22 13:46 Eos % (Auto) 2.9 % 08/19/22 13:46 Baso % (Auto) 1.1 % 08/19/22 13:46 Neut # (Auto) 6.58 10^3/uL (1.8-7.7) 08/19/22 13:46 Lymph # (Auto) 2.2 10^3/uL (0.8-4.8) 08/19/22 13:46 [place] # (Auto) 1.1 10^3/uL (0.2-0.9) H 08/19/22 13:46 Eos # (Auto) 0.3 10^3/uL (0.0-0.8) 08/19/22 13:46 Baso # (Auto) 0.1 10^3/uL (0.0-0.1) 08/19/22 13:46 Nucleated RBC % (auto) 0 % 08/19/22 13:46 Nucleated RBCs # 0.0 /100WBC 08/19/22 13:46 Sodium 134 mmol/L (136-145) L 08/19/22 14:48 Potassium 4.1 mmol/L (3.5-5.1) 08/19/22 14:48 Chloride 98 mmol/L (98-107) 08/19/22 14:48 Carbon Dioxide 22 mmol/L (22-29) 08/19/22 14:48 Anion Gap 18.1 (5-19) 08/19/22 14:48 BUN 9 mg/dL (6-20) 08/19/22 14:48 Creatinine 0.6 mg/dL (0.7-1.2) L 08/19/22 14:48 GFR Calculation 141.5 mL/min (90-130) H 08/19/22 14:48 Glucose 96 mg/dL (65-115) 08/19/22 14:48 Calculated Osmolality 277 mOsm/kg (285-295) L 08/19/22 14:48 Calcium 8.7 mg/dL (8.5-10.5) 08/19/22 14:48 Total Bilirubin 0.3 mg/dL (0.15-1.2) 08/19/22 14:48 AST 21 U/L (0-40) 08/19/22 14:48 ALT 32 U/L (0-41) 08/19/22 14:48 Alkaline Phosphatase 186 U/L (40-130) H 08/19/22 14:48 Total Protein 7.8 g/dL (6.6-8.7) 08/19/22 14:48 Albumin 4.4 g/dL (3.5-5.2) 08/19/22 14:48 Globulin 3.4 g/dL (1.3-4.6) 08/19/22 14:48 Lipase 51 U/L (13-60) 08/19/22 14:48 Discharge Plan Discharge Patient Disposition: Home Clinical Impression: Abdominal pain Qualifiers: Abdominal location: unspecified location Qualified Code(s): R10.9 - Unspecified abdominal pain Condition: Stable Prescriptions: New Reglan 10 mg tablet 10 mg PO Q6H PRN (Reason: nausea and vomiting) Qty: 15 0RF No Action multivitamin Tablet 1 tab PO DAILY phenytoin sodium extended 300 mg capsule 300 mg PO BID furosemide 20 mg tablet 20 mg PO DAILY mirtazapine 15 mg tablet 15 mg PO DAILY albuterol sulfate 90 mcg/actuation HFA aerosol inhaler 2 puff inhalation Q6H PRN metoprolol tartrate 100 mg tablet 100 mg PO BID potassium chloride 20 mEq tablet,ER particles/crystals 20 meq PO DAILY lisinopril 5 mg tablet 5 mg PO DAILY buspirone 10 mg tablet 20 mg PO BID aripiprazole 10 mg tablet 20 mg PO BID sertraline 100 mg tablet 150 mg PO QDAY trazodone 50 mg tablet 200 mg PO .HS Trelegy Ellipta 100-62.5-25 mcg blister with device 1 inh inhalation DAILY Qty: 60 3RF nicotine 21-14-7 mg/24 hr patch, TD daily, sequential See Rx Instructions transdermal .COMPLEX Qty: 56 0RF Rx Instructions: apply 1-21 mg NICOTINE PATCH daily for 28 days; follow with 1-14 mg PATCH daily for 14 days, then 1-7mg PATCH daily for 14 days transdermal azithromycin 500 mg tablet 500 mg PO DAILY 5 Days Qty: 5 0RF montelukast [Singulair] 10 mg tablet 10 mg PO DAILY Qty: 30 3RF ondansetron 4 mg tablet,disintegrating 4 mg PO Q8H PRN (Reason: nausea and vomiting) Qty: 30 0RF Discharge Orders: Discharge ED (Routine); Ordered 08/19/22 Ordered By: Oskar Iqbal Referrals: Denise Bhandari FNP [Primary Care Provider] - Discharge Diet: Advance as tolerated and Clear Liquid Patient Instructions: Abdominal Pain (ED), Opioid Safety Activity Restrictions/Additional Instructions: Follow-up with medical provider as directed. Take medications as prescribed. Return to the ER or your medical provider if condition worsens. Please read and understand discharge instructions. Thank you for choosing [facility] for your healthcare needs today. Please realize this is an emergency room and that we are providing you with a medical screening exam and this may not be complete and all inclusive of all the testing and or work up that you may need to determine your ailment or severity of your illness. It is very important that you follow up as instructed or that you return to the Emergency Department should you have concerns or if your condition changes or worsens in any way. Sign Out Sign Out Data: Patient Sign Out occurred on 08/19/22 at 17:32. Patient's care was discussed, and care was transferred from to JOLENE Mtz. Coding Level of Care Code ED Data Reviewer for Chg Fwd Exam Detailed Documented by User: JOLENE Mtz 08/20/22 01:12 HPI - Abdominal Pain General: Chief Complaint: Abdominal Pain Stated Complaint: ABD PAIN Time Seen by Provider: 08/19/22 15:23 [facility] ED PFSH: Medical History Amputation thumb Arteriosclerotic cerebrovascular disease Cannabis dependence, uncomplicated Chronic hepatitis C with hepatic coma He completed [employer] in 09/03. Chronic low back pain Dementia Major depressive disorder, recurrent, moderate MARIA DEL CARMEN (obstructive sleep apnea) Other stimulant dependence, uncomplicated Patent foramen ovale Seizures Surgical History H/O knee surgery History of hip surgery Previous back surgery S/P coronary angiogram Family History Other Cancer Hypertension Social History Smoking and tobacco status: current every day smoker cigarettes Packs smoked per day: 3 Years cigarettes smoked: 45 [ Other cigarette details: Smokes up to 3 ppd] Alcohol intake: current Alcohol intake frequency: holidays/special occasions only Housing: Homeless History of recent travel: No Course Vital Signs: Vital signs: Vital Signs Temperature 98.0 F 08/19/22 16:24 Pulse Rate 78 08/19/22 16:24 Respiratory Rate 17 08/19/22 16:24 Blood Pressure 110/68 08/19/22 16:24 Pulse Oximetry 98 08/19/22 16:24 Oxygen Delivery Me thod 08/19/22 16:24 MDM - Abdominal Pain Medical Decision Making Mills Gupta STUDENT DEAN performed the initial history physical exam and ordered lab work-up and imaging. I took over patient case at 5 PM and ultrasound her gallbladder was pending. Patient is a 52-year-old male who comes to the ED with abdominal pain nausea and vomiting. Patient has a history of biliary colic and is scheduled to have cholecystectomy on August 30. Vitals are stable. Patient has right-sided abdominal tenderness on palpation. Rest of exam is benign. White blood cell count of 10.4 and the rest of labs are unremarkable. CT of abdomen pelvis shows gastroenterocolitis. Ultrasound gallbladder shows cholelithiasis, negative for cholecystitis. Patient was given IV fluids, morphine and Zofran and his symptoms improved. He was diagnosed with abdominal pain and was stable for discharge home. He was sent home with a prescription for Percocet for pain and some Zofran for nausea. He was instructed on a clear liquid diet and to advance it as tolerated. Follow-up with Dr. Zhou at his appointment to get gallbladder removed on August 30. Patient understood and agreed with plan. Lab Data I reviewed the patient's lab results. 08/19/22 13:46 08/19/22 14:48 Labs/Radiology: Radiology Impressions Abdomen/Pelvis CT 08/19/22 15:39 IMPRESSION: 1. Prominent fluid and mucosal enhancement in the stomach, small bowel and colon suggestive of a gastroenterocolitis in the appropriate clinical setting. 2. Bibasilar atelectasis. 3. Hepatic steatosis. 4. Cholecystectomy. 5. Mild diverticulosis without diverticulitis. Gallbladder Ultrasound 08/19/22 17:14 IMPRESSION: 1. Cholelithiasis, negative for cholecystitis. 2. Hepatic steatosis. 3. Common bile duct dilated to 8.7 mm without obstructing lesion, MRCP could further characterize this. Laboratory Results WBC 10.4 10^3/uL (4.0-10.0) H 08/19/22 13:46 RBC 5.05 10^6/uL (4.1-5.3) 08/19/22 13:46 Hgb 16.5 g/dL (11.7-16.6) 08/19/22 13:46 Hct 49.3 % (42.0-52.0) 08/19/22 13:46 MCV 97.6 fl (80-94) H 08/19/22 13:46 MCH 32.7 pg (28.0-34.0) 08/19/22 13:46 MCHC 33.5 g/dL (30.0-36.0) 08/19/22 13:46 RDW 11.7 % (12.1-15.1) L 08/19/22 13:46 Plt Count 247 10^3/cmm (130-400) 08/19/22 13:46 MPV 9.7 fL (7.4-10.4) 08/19/22 13:46 Neut % (Auto) 63.3 % 08/19/22 13:46 Lymph % (Auto) 21.2 % 08/19/22 13:46 [place] % (Auto) 11.0 % 08/19/22 13:46 Eos % (Auto) 2.9 % 08/19/22 13:46 Baso % (Auto) 1.1 % 08/19/22 13:46 Neut # (Auto) 6.58 10^3/uL (1.8-7.7) 08/19/22 13:46 Lymph # (Auto) 2.2 10^3/uL (0.8-4.8) 08/19/22 13:46 [place] # (Auto) 1.1 10^3/uL (0.2-0.9) H 08/19/22 13:46 Eos # (Auto) 0.3 10^3/uL (0.0-0.8) 08/19/22 13:46 Baso # (Auto) 0.1 10^3/uL (0.0-0.1) 08/19/22 13:46 Nucleated RBC % (auto) 0 % 08/19/22 13:46 Nucleated RBCs # 0.0 /100WBC 08/19/22 13:46 Sodium 134 mmol/L (136-145) L 08/19/22 14:48 Potassium 4.1 mmol/L (3.5-5.1) 08/19/22 14:48 Chloride 98 mmol/L (98-107) 08/19/22 14:48 Carbon Dioxide 22 mmol/L (22-29) 08/19/22 14:48 Anion Gap 18.1 (5-19) 08/19/22 14:48 BUN 9 mg/dL (6-20) 08/19/22 14:48 Creatinine 0.6 mg/dL (0.7-1.2) L 08/19/22 14:48 GFR Calculation 141.5 mL/min (90-130) H 08/19/22 14:48 Glucose 96 mg/dL (65-115) 08/19/22 14:48 Calculated Osmolality 277 mOsm/kg (285-295) L 08/19/22 14:48 Calcium 8.7 mg/dL (8.5-10.5) 08/19/22 14:48 Total Bilirubin 0.3 mg/dL (0.15-1.2) 08/19/22 14:48 AST 21 U/L (0-40) 08/19/22 14:48 ALT 32 U/L (0-41) 08/19/22 14:48 Alkaline Phosphatase 186 U/L (40-130) H 08/19/22 14:48 Total Protein 7.8 g/dL (6.6-8.7) 08/19/22 14:48 Albumin 4.4 g/dL (3.5-5.2) 08/19/22 14:48 Globulin 3.4 g/dL (1.3-4.6) 08/19/22 14:48 Lipase 51 U/L (13-60) 08/19/22 14:48 Discharge Plan Discharge Patient Disposition: Home Clinical Impression: Abdominal pain Qualifiers: Abdominal location: unspecified location Qualified Code(s): R10.9 - Unspecified abdominal pain Condition: Stable Prescriptions: New Reglan 10 mg tablet 10 mg PO Q6H PRN (Reason: nausea and vomiting) Qty: 15 0RF No Action multivitamin Tablet 1 tab PO DAILY phenytoin sodium extended 300 mg capsule 300 mg PO BID furosemide 20 mg tablet 20 mg PO DAILY mirtazapine 15 mg tablet 15 mg PO DAILY albuterol sulfate 90 mcg/actuation HFA aerosol inhaler 2 puff inhalation Q6H PRN metoprolol tartrate 100 mg tablet 100 mg PO BID potassium chloride 20 mEq tablet,ER particles/crystals 20 meq PO DAILY lisinopril 5 mg tablet 5 mg PO DAILY buspirone 10 mg tablet 20 mg PO BID aripiprazole 10 mg tablet 20 mg PO BID sertraline 100 mg tablet 150 mg PO QDAY trazodone 50 mg tablet 200 mg PO .HS Trelegy Ellipta 100-62.5-25 mcg blister with device 1 inh inhalation DAILY Qty: 60 3RF nicotine 21-14-7 mg/24 hr patch, TD daily, sequential See Rx Instructions transdermal .COMPLEX Qty: 56 0RF Rx Instructions: apply 1-21 mg NICOTINE PATCH daily for 28 days; follow with 1-14 mg PATCH daily for 14 days, then 1-7mg PATCH daily for 14 days transdermal azithromycin 500 mg tablet 500 mg PO DAILY 5 Days Qty: 5 0RF montelukast [Singulair] 10 mg tablet 10 mg PO DAILY Qty: 30 3RF ondansetron 4 mg tablet,disintegrating 4 mg PO Q8H PRN (Reason: nausea and vomiting) Qty: 30 0RF Discharge Orders: Discharge ED (Routine); Ordered 08/19/22 Ordered By: Oskar Iqbal Referrals: Denise Bhandari FNP [Primary Care Provider] - Discharge Diet: Advance as tolerated and Clear Liquid Patient Instructions: Abdominal Pain (ED), Opioid Safety Activity Restrictions/Additional Instructions: Follow-up with medical provider as directed. Take medications as prescribed. Return to the ER or your medical provider if condition worsens. Please read and understand discharge instructions. Thank you for choosing [facility] for your healthcare needs today. Please realize this is an emergency room and that we are providing you with a medical screening exam and this may not be complete and all inclusive of all the testing and or work up that you may need to determine your ailment or severity of your illness. It is very important that you follow up as instructed or that you return to the Emergency Department should you have concerns or if your condition changes or worsens in any way. Sign Out Sign Out Data: Patient Sign Out occurred on 08/19/22 at 17:32. Patient's care was discussed, and care was transferred from to JOLENE Mtz. Coding Level of Care Code ED Data Reviewer for Chg Fwd Exam Detailed Documented by User: Polo Marshall DO 08/20/22 05:49 HPI - Abdominal Pain General: Chief Complaint: Abdominal Pain Stated Complaint: ABD PAIN Time Seen by Provider: 08/19/22 15:23 [facility] ED PFSH: Medical History Amputation thumb Arteriosclerotic cerebrovascular disease Cannabis dependence, uncomplicated Chronic hepatitis C with hepatic coma He completed [employer] in 09/03. Chronic low back pain Dementia Major depressive disorder, recurrent, moderate MARIA DEL CARMEN (obstructive sleep apnea) Other stimulant dependence, uncomplicated Patent foramen ovale Seizures Surgical History H/O knee surgery History of hip surgery Previous back surgery S/P coronary angiogram Family History Other Cancer Hypertension Social History Smoking and tobacco status: current every day smoker cigarettes Packs smoked per day: 3 Years cigarettes smoked: 45 [ Other cigarette details: Smokes up to 3 ppd] Alcohol intake: current Alcohol intake frequency: holidays/special occasions only Housing: Homeless History of recent travel: No Course Vital Signs: Vital signs: Vital Signs Temperature 98.0 F 08/19/22 16:24 Pulse Rate 78 08/19/22 16:24 Respiratory Rate 17 08/19/22 16:24 Blood Pressure 110/68 08/19/22 16:24 Pulse Oximetry 98 08/19/22 16:24 Oxygen Delivery Me thod 08/19/22 16:24 MDM - Abdominal Pain Medical Decision Making Phylicia Gupta STUDENT DEAN performed the initial history physical exam and ordered lab work-up and imaging. I took over patient case at 5 PM and ultrasound her gallbladder was pending. Patient is a 52-year-old male who comes to the ED with abdominal pain nausea and vomiting. Patient has a history of biliary colic and is scheduled to have cholecystectomy on August 30. Vitals are stable. Patient has right-sided abdominal tenderness on palpation. Rest of exam is benign. White blood cell count of 10.4 and the rest of labs are unremarkable. CT of abdomen pelvis shows gastroenterocolitis. Ultrasound gallbladder shows cholelithiasis, negative for cholecystitis. Patient was given IV fluids, morphine and Zofran and his symptoms improved. He was diagnosed with abdominal pain and was stable for discharge home. He was sent home with a prescription for Percocet for pain and some Zofran for nausea. He was instructed on a clear liquid diet and to advance it as tolerated. Follow-up with Dr. Zhou at his appointment to get gallbladder removed on August 30. Patient understood and agreed with plan. Chart reviewed and patient discussed with midlevel. Agree with assessment and plan. Lab Data 08/19/22 13:46 08/19/22 14:48 Labs/Radiology: Radiology Impressions Abdomen/Pelvis CT 08/19/22 15:39 IMPRESSION: 1. Prominent fluid and mucosal enhancement in the stomach, small bowel and colon suggestive of a gastroenterocolitis in the appropriate clinical setting. 2. Bibasilar atelectasis. 3. Hepatic steatosis. 4. Cholecystectomy. 5. Mild diverticulosis without diverticulitis. Gallbladder Ultrasound 08/19/22 17:14
[2022-08-19 16:24] VITALS: BP 110/68; PULSE 78; RESP 17; TEMP 36.7; O2SAT 98
[2022-08-19] MEDS: iohexol 350 mg/mL 500 mL Btl (per mL) IV (16:42)
--- NOTE | 2022-08-19 17:14 | USR_ITS ---
PROCEDURE INFORMATION: Exam: US Abdomen, Limited; Right Upper Quadrant Exam date and time: 08/19/2022 5:25 PM Age: 52 years old Clinical indication: Abdominal pain; Acute; Additional info: Ruq abdominal pain TECHNIQUE: Imaging protocol: Real time ultrasound of the abdomen with image documentation. Limited exam focused on the right upper quadrant. COMPARISON: US gall bladder [id number] 06/13/2022 6:40 PM FINDINGS: Liver: Hepatic steatosis. Gallbladder: Cholelithiasis, negative for cholecystitis. Biliary ducts: Common bile duct dilated to 8.7 mm without obstructing lesion, MRCP could further characterize this. Pancreas: Visualized pancreas is unremarkable. Right kidney: Normal. No mass. No hydronephrosis. US/US gall bladder [id number] IMPRESSION: 1. Cholelithiasis, negative for cholecystitis. 2. Hepatic steatosis. 3. Common bile duct dilated to 8.7 mm without obstructing lesion, MRCP could further characterize this.
[2022-08-19] MEDS: sodium chloride 0.9% 1,000 ML 999 ML IV (18:08)
[2022-08-19] MEDS: morphine 4 mg/mL SDV 1 mL IVP (18:08)
== END 2022-08-19 19:00 | disposition home or self-care (01) ==
PROVIDERS: Emergency Medicine; Emergency Provider Physician Assistant; PCP Nurse Practitioner Family
DX: R10.9 Unspecified abdominal pain (principal); Z86.19 Personal history of other infectious and parasitic diseases; F03.90 Unspecified dementia, unspecified severity, without behavioral disturbance, psychotic disturbance, mood disturbance, and anxiety; F17.210 Nicotine dependence, cigarettes, uncomplicated
CPT/HCPCS: 36415; 74177; 76705; 80053; 83690; 85025; 96374; 96375; 96376; 99285; J2270; J2405; J7030; Q9967

== ENCOUNTER 2022-08-30 10:22 | Day surgery (SDC) | payer MEDICAID, SELFPAY ==
[2022-08-27 12:55] VITALS: BMI 30.8
[2022-08-30 10:45] VITALS: BP 121/81; PULSE 71; RESP 17; TEMP 36.4; O2SAT 98
[2022-08-30] MEDS: sodium chloride 0.9% 1,000 ML 30 ML IV (10:59)
--- NOTE | 2022-08-30 11:05 | SUR.PREOP ---
1104 pt surgery being cancelled due to 2 emergency surgeries in the er,pt informed per phu quintanarn
== END 2022-08-30 11:10 | disposition home or self-care (01) ==
LOC: OR 10:23
PROVIDERS: PCP Nurse Practitioner Family; Visit Provider Surgery
DX: Z53.8 Procedure and treatment not carried out for other reasons (principal)
CPT/HCPCS: J7030

== ENCOUNTER 2022-09-17 12:42 | Outpatient (CLI) | payer MEDICAID, SELFPAY ==
--- NOTE | 2022-09-17 13:00 | MR_ITS ---
WS: [id number] MRI RIGHT HIP without CONTRAST. COMPARISON: Radiograph 06/10/2022 Multiplanar, multisequence imaging is performed without contrast. No acute fractures or marrow edema. 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 Foreshortening t he femoral neck with CAM deformity. Osteophytic ridging around the femoral head. There is varus malfo rmation which was also described radiographically. There is flattening and loss of the normal cartila ge over the femoral head. There is also very mild deformity of the acetabular cup. The acetabulum medardo ears larger and more vertical as compared to the LEFT. The labrum is not well identified but the labr um appears thickened. There is very slight increased T2 signal in the lateral labrum. Highly suspicio us for tear. Normal appearance of the LEFT hip. Visualized urinary bladder is normal. Sacrum and SI joints are neg ative. MR/MR hip RT wo con* [id number] IMPRESSION: 1. 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 2. Mild vertical orientation of the acetabulum. 3. Osteophytic ridging around the femoral head with diffuse mild loss of the n ormal cartilage. 4. No marrow edema or fracture. 5. Limited evaluation of the labrum but there is increased signal suspicious f or tear involving the superior lateral labrum.
== END 2022-09-17 12:43 | disposition home or self-care (01) ==
LOC: RAD 12:46
PROVIDERS: PCP Nurse Practitioner Family; Visit Provider Specialist
DX: M25.551 Pain in right hip (principal)
CPT/HCPCS: 73721

== ENCOUNTER → 2022-09-27 10:12 | Outpatient (BNVA) | payer MEDICAID, SELFPAY | PROVIDERS: PCP Nurse Practitioner Family; Visit Provider Internal Medicine Rheumatology | DX: M19.90 Unspecified osteoarthritis, unspecified site (principal); M45.6 Ankylosing spondylitis lumbar region; Z79.899 Other long term (current) drug therapy; M25.462 Effusion, left knee; M76.61 Achilles tendinitis, right leg; M76.62 Achilles tendinitis, left leg | CPT/HCPCS: 36415; 72100; 72170; 73130; 73562; 73630; 85651; 86140; 86200; 86431; 86812; 99204 ==

== ENCOUNTER 2022-09-30 05:47 | Day surgery (SDC) | payer MEDICAID, SELFPAY ==
[2022-09-29 09:39] VITALS: BMI 29.2
[2022-09-30] VITALS (14 sets, daily range): BP systolic 110–142; BP diastolic 56–98; PULSE 64–78; RESP 16–23; TEMP 36.1; O2SAT 90–100
--- NOTE | 2022-09-30 05:53 | PM.HP ---
Providers/Chief Complaint Primary Care Provider: ACITLYN Byers Chief Complaint: Abdominal pain History of Present Illness Mal Jack is a 52 year old male here for cholecystectomy Medications/Allergies Home Medications Medication Instructions Recorded Confirmed Last Taken Type buspirone 10 mg tablet 20 mg PO BID 05/18/22 09/29/22 09/29/22 History furosemide 20 mg tablet 20 mg PO DAILY 05/18/22 09/29/22 09/29/22 History lisinopril 5 mg tablet 5 mg PO DAILY 05/18/22 09/29/22 09/29/22 History metoprolol tartrate 100 mg tablet 100 mg PO BID 05/18/22 09/29/22 09/29/22 History mirtazapine 15 mg tablet 15 mg PO DAILY 05/18/22 09/29/22 09/29/22 History phenytoin sodium extended 300 mg 300 mg PO BID 05/18/22 09/29/22 09/29/22 History capsule potassium chloride 20 mEq 20 meq PO DAILY 05/18/22 09/29/22 09/29/22 History tablet,extended release(part/cryst) ondansetron 4 mg disintegrating 4 mg PO Q8H PRN nausea and 06/13/22 09/29/22 09/28/22 Rx tablet vomiting #30 tabs aripiprazole 10 mg tablet (Abilify) 20 mg PO BID 06/14/22 09/29/22 09/28/22 History sertraline 100 mg tablet 150 mg PO QDAY 06/14/22 09/29/22 09/29/22 History trazodone 50 mg tablet 200 mg PO .HS 06/14/22 09/29/22 09/28/22 History montelukast 10 mg tablet 10 mg PO DAILY #30 tabs 08/12/22 09/29/22 09/29/22 Rx (Singulair) nicotine See Rx Instructions transdermal 08/12/22 09/29/22 09/29/22 Rx 21mg/24hr-14mg/24hr-7mg/24hr daily .COMPLEX #56 patches transderm patches,sequentl metoclopramide HCl 10 mg tablet 10 mg PO Q6H PRN nausea and 08/19/22 09/29/22 08/27/22 Rx (Reglan) vomiting #15 tabs umeclidinium 62.5 mcg-vilanterol 1 inh inhalation DAILY 08/30/22 09/29/22 09/29/22 History 25 mcg/actuation powdr for inhalation (Anoro Ellipta) prednisone 20 mg tablet See Rx Instructions PO .COMPLEX 09/27/22 09/29/22 Unknown Rx PRN joint pain flare #30 tabs Allergies Allergy/AdvReac Type Severity Reaction Status Date / Time No Known Allergies Allergy Verified 09/29/22 09:35 PFSH Acute PFSH: Medical History (Updated 09/27/22 @ 11:13 by Pravin Palma MD) Amputation thumb Arteriosclerotic cerebrovascular disease Cannabis dependence, uncomplicated Chronic hepatitis C with hepatic coma He completed Mavyret in 09/03. Chronic low back pain Dementia Heart attack High risk medication use Immunization counseling Inflammatory arthritis Iazn-Locni-Ymzdzcx disease Major depressive disorder, recurrent, moderate MARIA DEL CARMEN (obstructive sleep apnea) Other stimulant dependence, uncomplicated Patent foramen ovale Seizures Stroke Surgical History H/O knee surgery History of hip surgery Previous back surgery S/P coronary angiogram Family History Other Cancer Hypertension Social History Smoking and tobacco status: current every day smoker cigarettes Packs smoked per day: 3 Years cigarettes smoked: 45 [ Other cigarette details: Smokes up to 3 ppd] Alcohol intake: current Alcohol intake frequency: holidays/special occasions only Housing: Homeless History of recent travel: No Vitals/I&O/Wt Weight last 48 hrs Weight 150 lb A&P Assessment and plan (1) Symptomatic cholelithiasis: Plan Laparoscopic cholecystectomy The risks and benefits of the procedure, including but not limited to, bleeding, infection, scar, numbness, pain, damage to surrounding structures, damage to common bile duct requiring additional surgery, conversion to an open procedure, were explained to the patient. He is understanding of the risks and wishes to proceed. Attestations Medical Necessity Statement*: Home Coding Level of Care Code Acute Code for [facility] Fwd Diagnoses Symptomatic cholelithiasis K80.20
[2022-09-30] MEDS: sodium chloride 0.9% 1,000 ML 30 ML IV (06:28)
--- NOTE | 2022-09-30 06:51 | ANES.PREANE2 ---
Pre-Anesthetic Assessment Height/Weight: Height 1.52 m Weight 68.039 kg Temp Pulse Resp BP Pulse Ox O2 Del Method 97 F L 71 18 110/56 96 09/30/22 06:13 09/30/22 06:13 09/30/22 06:13 09/30/22 06:13 09/30/22 06:13 09/30/22 06:30 Preop Diagnosis: Symptomatic cholelithiasis Operation Date: 09/30/22 07:00 Proposed Procedures p Laparoscopic Cholecystectomy(Not Applicable) - David Zhou DO Familial anesthetic complications: None Was Beta Kingsley taken within 24 hours: Yes Was Clonidine taken within 24 hours: N/A Last intake: Intake Last Liquid Date 09/29/22 Last Liquid Time 20:45 Last Solid Date 09/29/22 Last Solid Time 20:45 Social Alcohol (Social) and Tobacco (Marijuana, 3-4 a day) Exam alert, oriented x 3, clear to auscultation bilaterally and regular rate & rhythm Airway Submandibular: within normal limits Cervical ROM: within normal limits Mallampati: Class II Dentition: false History/ROS No significant history except as noted and No significant complaints Pulmonary Asthma, Chronic Obstructive Pulmonary Disease, Cough, Exertional Dyspnea and Sleep Apnea CV/HEM Arrythmia, Coronary Artery Disease, Congestive Heart Failure, Deep Vein Thrombosis and Hypertension None reported Hepatic Hepatitis (Hep C, treated with meds) GI Gastroesophageal Reflux Disease Metabolic Hyperlipidemia Musc/skel Lower Back Pain and Osteoarthritis/DJD Neuropsych Anxiety, Cerebrovascular Accident (Right sided weakness), Dementia, Depression, Neuropathy, Seizure and Transient Ischemic Attack Anesthetic Plan ASA status: 3 Anesthesia: Anesthesia Evaluation and General Risk of > 500 ml blood loss (7ml/kg in children): No Medications/Allergies Home Medications Medication Instructions Recorded Confirmed Last Taken Type buspirone 10 mg tablet 20 mg PO BID 05/18/22 09/29/22 09/29/22 History furosemide 20 mg tablet 20 mg PO DAILY 05/18/22 09/29/22 09/29/22 History lisinopril 5 mg tablet 5 mg PO DAILY 05/18/22 09/29/22 09/29/22 History metoprolol tartrate 100 mg tablet 100 mg PO BID 05/18/22 09/29/22 09/29/22 History mirtazapine 15 mg tablet 15 mg PO DAILY 05/18/22 09/29/22 09/29/22 History phenytoin sodium extended 300 mg 300 mg PO QPM 05/18/22 09/30/22 09/29/22 History capsule potassium chloride 20 mEq 10 meq PO DAILY 05/18/22 09/30/22 09/29/22 History tablet,extended release(part/cryst) ondansetron 4 mg disintegrating 4 mg PO Q8H PRN nausea and 06/13/22 09/29/22 09/28/22 Rx tablet vomiting #30 tabs aripiprazole 10 mg tablet (Abilify) 20 mg PO BID 06/14/22 09/29/22 09/29/22 History sertraline 100 mg tablet 150 mg PO QDAY 06/14/22 09/29/22 09/29/22 History trazodone 50 mg tablet 200 mg PO .HS 06/14/22 09/29/22 09/29/22 History montelukast 10 mg tablet 10 mg PO DAILY #30 tabs 08/12/22 09/29/22 09/29/22 Rx (Singulair) nicotine See Rx Instructions transdermal 08/12/22 09/29/22 09/29/22 Rx 21mg/24hr-14mg/24hr-7mg/24hr daily .COMPLEX #56 patches transderm patches,sequentl metoclopramide HCl 10 mg tablet 10 mg PO Q6H PRN nausea and 08/19/22 09/29/22 09/29/22 Rx (Reglan) vomiting #15 tabs umeclidinium 62.5 mcg-vilanterol 1 inh inhalation DAILY 08/30/22 09/29/22 09/29/22 History 25 mcg/actuation powdr for inhalation (Anoro Ellipta) prednisone 20 mg tablet See Rx Instructions PO .COMPLEX 09/27/22 09/29/22 09/29/22 Rx PRN joint pain flare #30 tabs albuterol sulfate 90 mcg/actuation 1 inhalation BID 09/30/22 07/28/22 History aerosol inhaler (ProAir HFA) phenytoin sodium extended 200 mg 200 mg PO QAM 09/30/22 09/30/22 09/30/22 04:30 History capsule Allergies Allergy/AdvReac Type Severity Reaction Status Date / Time No Known Allergies Allergy Verified 09/29/22 09:35 Current Medications Generic Name Dose Route Start Last Admin Trade Name Freq PRN Reason Stop Dose Admin Sodium Chloride 1,000 mls @ 30 mls/hr 09/30/22 06:00 09/30/22 06:28 Sodium Chloride 0.9% IV 10/01/22 05:59 30 mls/hr .Q24H LUNA Administration PFS Anesthesia Medical History (Updated 09/27/22 @ 11:13 by Pravin Palma MD) Amputation thumb Arteriosclerotic cerebrovascular disease Cannabis dependence, uncomplicated Chronic hepatitis C with hepatic coma He completed Mavyret in 09/03. Chronic low back pain Dementia Heart attack High risk medication use Immunization counseling Inflammatory arthritis Wrgm-Vwxqf-Emypsts disease Major depressive disorder, recurrent, moderate MARIA DEL CARMEN (obstructive sleep apnea) Other stimulant dependence, uncomplicated Patent foramen ovale Seizures Stroke Surgical History H/O knee surgery History of hip surgery Previous back surgery S/P coronary angiogram Family History Other Cancer Hypertension Social History Smoking and tobacco status: current every day smoker cigarettes Packs smoked per day: 3 Years cigarettes smoked: 45 [ Other cigarette details: Smokes up to 3 ppd] Alcohol intake: current Alcohol intake frequency: holidays/special occasions only Housing: Homeless History of recent travel: No Data Anesthesia Cardiac Studies: Echocardiogram 07/27/22 Cardiac Event Monitor 06/14/22
[2022-09-30] MEDS: ceFAZolin 2,000 MG in sodium chloride 0.9% (plus) 50 ML 100 MG IV (07:00)
--- NOTE | 2022-09-30 07:40 | P.OP_ITS ---
Operative Report Date of procedure: September 30, 2022 Pre-op diagnosis: Preop Diagnosis Symptomatic cholelithiasis Post-op diagnosis: same Procedure done: Laparoscopic cholecystectomy Implants: Surgicel Specimens removed/disposition: Gallbladder Surgeon: Dr. David Zhou DO Anesthesia: General Estimated blood loss (mL): 5 Complications: None apparent Brief History: This very pleasant 52-year-old gentleman with symptomatic cholelithiasis. Laparoscopic cholecystectomy is indicated. The risks and benefits were explained and documented Procedure: Patient was wheeled into the operative room and placed on the OR table in a supine position. Abdomen was inspected prepped and draped in usual sterile fashion. Time-out was performed and all present were in agreement. A 15 blade scalp was used to make a stab incision in the left upper quadrant and intra- abdominal insufflation was achieved using a Veress needle. After localizing the tissue incisions were made and a 5 millimeter trocar was placed into the umbilicus as well as 2 in the right upper quadrant. A 12 millimeter trocar was placed in the epigastrium. Gallbladder was grasped and elevated. The triangle of Calot was carefully dissected using blunt dissection and electrocautery until the triangle of Calot clearly identified. The cystic duct was clipped proximally and double clipped distally. The duct was then ligated proximally. The cystic artery was doubly clipped and ligated. The gallbladder was then removed from the liver bed using electrocautery. The gallbladder was removed from the abdomen using an Endo-Catch bag through the epigastric incision. The liver bed was inspected and spot bleeding was controlled with electrocautery and a piece of Surgicel.. The abdomen was irrigated and suctioned. All ports removed. Skin was washed and dried. Incisions were closed with 3-0 and 4-O Vicryl in a subcuticular interrupted fashion. Skin glue was applied. Patient tolerated the procedure well.
[2022-09-30] MEDS: ondansetron 2 mg/ML SDV 2 mL 4 MG IVP ×2 (08:09→09:38)
[2022-09-30] MEDS: fentaNYL 50 mcg/mL INJ 2mL IVP (08:21)
[2022-09-30] MEDS: HYDROcodone-acetaminophen 7.5-325 mg Tablet 1 TAB PO (09:03)
--- NOTE | 2022-09-30 09:39 | PC.NURSE ---
0925 - pt up to bathroom. complaining of increased pain in abdomen. abd soft.
--- NOTE | 2022-09-30 09:40 | PC.NURSE ---
0938 - pt back to bed. complains of nausea . taking crackers and juice. med given.
--- NOTE | 2022-09-30 18:11 | ANE.PACU2 ---
Inpatient post-anesthesia follow up: Airway intact: Yes Vital signs: Temperature 97 F Pulse Rate 64 Respiratory Rate 18 Blood Pressure 140/84 Pulse Oximetry 94 Oxygen Delivery Me thod Room Air Oxygen Flow Rate 3 Fraction of Inspir ed Oxygen Hydration adequate: Yes Nausea and vomiting: No Pain level: 2 Mental status: Baseline
== END 2022-09-30 10:09 | disposition home or self-care (01) ==
PROVIDERS: PCP Nurse Practitioner Family; Visit Provider Surgery
PROC: 0FT44ZZ Resection of Gallbladder, Percutaneous Endoscopic Approach (ICD-10-PCS; CPT 47562; principal; 2022-09-30 07:00)
DX: K80.10 Calculus of gallbladder with chronic cholecystitis without obstruction (principal); J44.9 Chronic obstructive pulmonary disease, unspecified; I11.0 Hypertensive heart disease with heart failure; I50.9 Heart failure, unspecified; Z86.718 Personal history of other venous thrombosis and embolism; Z86.19 Personal history of other infectious and parasitic diseases; K21.9 Gastro-esophageal reflux disease without esophagitis; G47.33 Obstructive sleep apnea (adult) (pediatric); F17.210 Nicotine dependence, cigarettes, uncomplicated
CPT/HCPCS: 47562; 88304; J0330; J0690; J1100; J1885; J2370; J2405; J2704; J3010; J3490; J7030

== ENCOUNTER → 2022-10-12 11:15 | Outpatient (BNVA) | payer MEDICAID, SELFPAY | PROVIDERS: PCP Nurse Practitioner Family; Visit Provider Nurse Practitioner Family | DX: R55 Syncope and collapse (principal) | CPT/HCPCS: 99213 ==

== ENCOUNTER → 2022-10-21 15:32 | Outpatient (BNVA) | payer MEDICAID, SELFPAY | PROVIDERS: PCP Nurse Practitioner Family; Visit Provider Surgery | DX: Z98.890 Other specified postprocedural states (principal); Z90.49 Acquired absence of other specified parts of digestive tract | CPT/HCPCS: 99024 ==

== ENCOUNTER → 2022-11-22 10:26 | Outpatient (BNVA) | payer MEDICAID, SELFPAY | PROVIDERS: PCP Nurse Practitioner Family; Visit Provider Internal Medicine Rheumatology | DX: Z79.899 Other long term (current) drug therapy (principal); M19.90 Unspecified osteoarthritis, unspecified site; Z87.39 Personal history of other diseases of the musculoskeletal system and connective tissue; Z71.85 Encounter for immunization safety counseling; T45.1X5A Adverse effect of antineoplastic and immunosuppressive drugs, initial encounter; K52.1 Toxic gastroenteritis and colitis | CPT/HCPCS: 99214 ==

== ENCOUNTER → 2022-11-25 14:15 | Outpatient (BNVA) | payer MEDICAID, SELFPAY | PROVIDERS: PCP Nurse Practitioner Family; Visit Provider Internal Medicine Rheumatology | DX: M19.90 Unspecified osteoarthritis, unspecified site (principal); Z79.899 Other long term (current) drug therapy | CPT/HCPCS: 80076; 82565; 85025; 86140 ==

== ENCOUNTER → 2023-02-28 10:02 | Outpatient (BNVA) | payer MEDICAID, SELFPAY | PROVIDERS: PCP Nurse Practitioner Family; Visit Provider Internal Medicine Rheumatology | DX: Z71.85 Encounter for immunization safety counseling (principal); Z79.899 Other long term (current) drug therapy; M19.90 Unspecified osteoarthritis, unspecified site; M06.042 Rheumatoid arthritis without rheumatoid factor, left hand; M06.041 Rheumatoid arthritis without rheumatoid factor, right hand; Z87.39 Personal history of other diseases of the musculoskeletal system and connective tissue | CPT/HCPCS: 99214 ==

== ENCOUNTER → 2023-04-06 11:42 | Outpatient (BNVA) | payer MEDICAID, SELFPAY | PROVIDERS: PCP Nurse Practitioner Family; Visit Provider Specialist | DX: R56.9 Unspecified convulsions (principal); G24.3 Spasmodic torticollis; G81.11 Spastic hemiplegia affecting right dominant side; G43.711 Chronic migraine without aura, intractable, with status migrainosus; Z86.19 Personal history of other infectious and parasitic diseases | CPT/HCPCS: 99205 ==